=== PATIENT | male | born 1975 | race Caucasian/White ===

== ENCOUNTER → 2020-06-14 08:43 | Outpatient (BNVA) | payer MEDICAID, SELFPAY | PROVIDERS: Visit Provider Surgery | DX: E66.9 Obesity, unspecified (principal); Z68.31 Body mass index [BMI] 31.0-31.9, adult; E11.39 Type 2 diabetes mellitus with other diabetic ophthalmic complication; I10 Essential (primary) hypertension; K21.9 Gastro-esophageal reflux disease without esophagitis | CPT/HCPCS: 99214 ==

== ENCOUNTER → 2020-06-24 14:03 | Outpatient (BNVA) | payer MEDICAID, SELFPAY | PROVIDERS: PCP Internal Medicine Geriatric Medicine; Visit Provider Physician Assistant | DX: E66.9 Obesity, unspecified (principal); Z68.30 Body mass index [BMI] 30.0-30.9, adult | CPT/HCPCS: 99214 ==

== ENCOUNTER 2020-06-29 07:07 | Outpatient (REF) | payer MEDICAID, SELFPAY ==
[2020-06-29 08:33] LABS: MANUAL DIFF FLAG NO
[2020-06-29 08:57] LABS: Basophils Percent Auto 0.6 % (0-2); Eosinophils Absolute Auto 0.2 X10*3/uL (0.0-0.4); Eosinophils Percent Auto 3.2 % (0-4); Hematocrit 40.5 % (42-52); Hemoglobin 12.9 g/dl (14.0-18.0); Imm Gran Abs Auto 0.01 X10*3/uL (0.00-0.03); Imm Gran Pct Auto 0.2 % (0.0-0.4); Lymphocytes Percent Auto 20.2 % (20-40); Mean Corpuscular HGB Conc 31.9 g/dl (31.0-36.0); Mean Corpuscular Hemoglobin 28.4 pg (27.0-33.0); Mean Corpuscular Volume 89.2 fL (80-98); Mean Platelet Volume 11.2 fL (9.4-12.4); Monocytes Absolute Auto 0.4 X10*3/uL (0.1-1.2); Neutrophils Absolute Auto 3.4 X10*3/uL (2.0-8.3); Neutrophils Percent Auto 67.8 % (45-73); Platelet Count 246 X10*3/uL (160-400); Red Blood Count 4.54 X10*6/uL (4.60-5.80); Red Cell Distribution Width 14.8 % (11.0-16.0)
[2020-06-29 09:39] LABS: C Reactive Protein 0.84 mg/dL (< or = 0.50); Cholesterol 115 mg/dL; HDL Cholesterol 28 mg/dL; Iron 66 mcg/dL (45-160); LDL Cholesterol Calculated 69 mg/dl; Percent Iron Saturation 28 % (15-50); Total Iron Binding Capacity 233 mcg/dL (228-428); Triglycerides 93 mg/dL; Unsaturated Iron Binding 167 ug/dL
[2020-06-29 09:54] LABS: Estimated Average Glucose 123 mg/dL; Hemoglobin A1c % 5.9 %
[2020-06-29 10:02] LABS: Ferritin 293 ng/mL (20-250); TSH reflex Free T4 3.39 mIU/mL (0.32-4.0); Vitamin D 25-OH Total 39.8 ng/mL (>30)
[2020-06-29 10:04] LABS: Folate 8.2 ng/mL (> or = 4.0); Vitamin B12 673 pg/mL (200-900)
[2020-06-29 11:10] LABS: Alanine Aminotransferase 12 U/L (0-40); Albumin Level 4.3 g/dL (3.5-5.0); Alkaline Phosphatase 57 U/L (39-117); Anion Gap 16 (12-20); Aspartate Amino Transferase 16 U/L (5-37); Bilirubin Total 0.6 mg/dL (0.0-1.0); Blood Urea Nitrogen 24 mg/dL (9-16); Calcium 9.4 mg/dL (8.4-10.2); Carbon Dioxide 24 mmol/L (22-29); Chloride 105 mmol/L (96-108); Estimated Glomerular Filt Rate > 60; Glucose Random 91 mg/dL (60-115); Potassium 3.8 mmol/l (3.3-5.1); Sodium 141 mmol/L (135-145); Total Protein 7.3 g/dL (6.5-8.0)
[2020-06-30 22:22] LABS: Insulin Level Total 8.4 uIU/mL
[2020-07-02 03:17] LABS: Zinc 123 mcg/dL (60-130)
[2020-07-03 01:11] LABS: Vitamin A 40 mcg/dL (38-98)
[2020-07-05 15:12] LABS: Vitamin B1 29 nmol/L (8-30)
== END 2020-06-29 07:08 | disposition home or self-care (01) ==
LOC: HO.LAB 07:07
PROVIDERS: PCP Internal Medicine Geriatric Medicine; Visit Provider Physician Assistant
DX: Z01.818 Encounter for other preprocedural examination (principal); E66.9 Obesity, unspecified
CPT/HCPCS: 36415; 80053; 80061; 82306; 82607; 82728; 82746; 83036; 83519; 83525; 83540; 84425; 84443; 84590; 84630; 85025; 86140; 86850

== ENCOUNTER 2020-07-01 07:12 | Outpatient (REF) | payer MEDICAID, SELFPAY ==
[2020-07-01 08:24] LABS: INTERNATIONAL NORM RATIO 1.1 (0.9-1.1); Prothrombin Time 12.7 SEC (10.8-13.0)
[2020-07-01 08:27] LABS: Partial Thromboplastin Time 35.6 SEC (24.1-38.0)
[2020-07-04 20:21] LABS: Calcium (PTHI) 9.2 mg/dL (8.6-10.3); PTHI 29 pg/mL (14-64)
== END 2020-07-01 07:13 | disposition home or self-care (01) ==
LOC: HO.LAB 07:12
PROVIDERS: Physician Assistant; PCP Internal Medicine Geriatric Medicine; Visit Provider Physician Assistant
DX: Z01.818 Encounter for other preprocedural examination (principal); E66.9 Obesity, unspecified
CPT/HCPCS: 36415; 83970; 85610; 85730; 87086

== ENCOUNTER 2020-07-05 06:33 | Inpatient (IN) | payer MEDICAID, SELFPAY ==
[2020-06-24 11:09] VITALS: BMI 31.2
--- NOTE | 2020-07-04 10:28 | HO.ANESPROP2 ---
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 Sister No problems noted. Son No problems noted. Daughter No problems noted. Surgical History Surgical History History of esophagogastroduodenoscopy (EGD) Hx of circumcision Hx of inguinal hernia repair Social History Social History (Updated 06/22/20 @ 13:25 by Hardy Merida [facility]) Are you a primary health care law specialist to a significant other at home: No Do you presently have visiting nurse or other home services: No Alcohol intake: never Smoking Status: Former smoker Smoking Quit Date: 2017 Second Hand Smoke Exposure: No Use of substances other than those prescribed or required for medical reasons: No Substance Use Type: Crack/Cocaine Substance Use Type Other:: quit 2016 Have you been hit, kicked, punched, or otherwise hurt by someone within the past year? If so, by whom?: No Advance Directives: No Advance Directives Information Provided: Yes Advance Directives on File: No Recently lost weight without trying: No Meds Allergies Allergy/AdvReac Type Severity Reaction Status Date / Time Fentanyl AdvReac Mild nausea and Uncoded 07/05/20 06:31 vomiting Home Medications Medication Instructions Recorded Confirmed Type aspirin 81 mg tablet,delayed 81 mg PO DAILY 06/11/20 06/24/20 History release thiamine HCl (vitamin B1) 100 mg 100 mg PO DAILY 06/11/20 06/24/20 History tablet lisinopril 20 mg PO DAILY 06/24/20 06/24/20 History multivitamin 1 cap PO DAILY 06/24/20 06/24/20 History simvastatin 40 mg PO DAILY 06/24/20 06/24/20 History Exam Exam Date and Time: July 04, 2020 1028 Height,Weight and Vital Signs: Height 5 ft 11 in Weight 101.605 kg Pertinent Lab Results Pertinent Lab Results: Laboratory Tests 06/29/20 07:26 Blood Type A Positive Antibody Screen NEGATIVE Laboratory Tests 06/29/20 06/29/20 06/29/20 07:26 07:26 07:26 WBC 5.0 Hgb 12.9 L Hct 40.5 L Plt Count 246 PT INR APTT Sodium 141 Potassium 3.8 Chloride 105 Carbon Dioxide 24 BUN 24 H Creatinine 1.20 Hemoglobin A1c % 5.9 07/01/20 07:45 WBC Hgb Hct Plt Count PT 12.7 INR 1.1 APTT 35.6 Sodium Potassium Chloride Carbon Dioxide BUN Creatinine Hemoglobin A1c % Narrative Narrative: EKG 04/2020: SR@79, no significant ST-T changes, no ischemia or infarctio patterns and otherwise unremarkable MIBI 2015: no reversible or fixed defect Echo: LVEF 60-65%, otherwise unremarkable PFT 04/2020: Mild restrictive ventilatory defect with no bronchodilator response except small to medium airways. Decreased expiratory reserve volume suggests extrathoracic restriction likely secondary to abdominal obesity. 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 Sister No problems noted. Son No problems noted. Daughter No problems noted. Surgical History Surgical History History of esophagogastroduodenoscopy (EGD) Hx of circumcision Hx of inguinal hernia repair Social History Social History (Updated 06/22/20 @ 13:25 by Hardy Merida CMA) Are you a primary health care law specialist to a significant other at home: No Do you presently have visiting nurse or other home services: No Alcohol intake: never Smoking Status: Former smoker Smoking Quit Date: 2017 Second Hand Smoke Exposure: No Use of substances other than those prescribed or required for medical reasons: No Substance Use Type: Crack/Cocaine Substance Use Type Other:: quit 2016 Have you been hit, kicked, punched, or otherwise hurt by someone within the past year? If so, by whom?: No Advance Directives: No Advance Directives Information Provided: Yes Advance Directives on File: No Recently lost weight without trying: No Meds Allergies Allergy/AdvReac Type Severity Reaction Status Date / Time Fentanyl AdvReac Mild nausea and Uncoded 07/05/20 06:31 vomiting Home Medications Medication Instructions Recorded Confirmed Type aspirin 81 mg tablet,delayed 81 mg PO DAILY 06/11/20 06/24/20 History release thiamine HCl (vitamin B1) 100 mg 100 mg PO DAILY 06/11/20 06/24/20 History tablet lisinopril 20 mg PO DAILY 06/24/20 06/24/20 History multivitamin 1 cap PO DAILY 06/24/20 06/24/20 History simvastatin 40 mg PO DAILY 06/24/20 06/24/20 History Exam Airway Mallampati Class: II TM Dist: >3cm Neck ROM: Full Loose/Missing/Broken Teeth: No Heart: rrr+[id number] Lungs: cta b/l Assessment and Plan Assessment Anesthesia Assessment: Anesthesia Plan Discussed, PAT Visit and Chart Reviewed Final Anesthetic Review NPO: Yes Final Preanesthetic Review: No Changes in Pt Med Stat, Meds/Allgs Chart Reviewed, Consent Obtained/Reviewed and Anes Risks/Benef Reviewed Patient Risk: Low Procedure Risk: Low Assessment/Block/Sedation in SS: Assess/Block/Sedation-SS Anesthetic Plan Anesthetic Plan: GA Disposition: Standard PACU
[2020-07-05] VITALS (10 sets, daily range): BP systolic 124–156; BP diastolic 64–88; PULSE 67–88; RESP 12–19; TEMP 36.1–36.8; O2SAT 94–98
[2020-07-05 06:23] LABS: Glucose, Whole Blood 96 mg/dL (60-115)
[2020-07-05] MEDS: Lactated Ringers 1,000 ML 100 ML IVCONT ×2 (06:35→11:40)
[2020-07-05 06:56] LABS: SARS COV2 PCR INHOUSE NEGATIVE (Negative)
--- NOTE | 2020-07-05 07:24 | MHC.SHP ---
Pre-Procedural Eval Section A The patient is an INPATIENT: Yes The History & Physical has been completed within 30 days and I have reviewed it.: No Section B Chief Complaint: post op sleeve Relevant Family History (Specify if Yes): No Relevant Social History: None History of Previous Operations: No relevant previous surgery Allergies: Allergies Allergy/AdvReac Type Severity Reaction Status Date / Time Fentanyl AdvReac Mild nausea and Uncoded 07/05/20 06:31 vomiting Review of Systems Sugical H&P ROS: Negative: Constitution, Cardiovascular, Respiratory, Neurological, Psychiatric, Hem-Onc, Allergic/Immunologic, Gastrointestinal, Genitourinary, Musculoskeletal, Integumentary, Endocrine and Eyes/Ears/Nose/Throat Exam Surgical H&P Exam: Normal: HEENT, Normal: Heart, Normal: Lungs, Normal: Extremities, Normal: Abdomen, Normal: Skin and Normal: Neurological Plan Diagnosis/Plan: Unchanged Patient has been examined and remains a candidate for the planned procedure
[2020-07-05] MEDS: ceFAZolin Sodium/Dextrose,Iso 2 GM/50 ML PIGGYBACK IV ×2 (07:28→13:21)
--- NOTE | 2020-07-05 09:57 | P.BOP_ITS ---
Brief Operative Note Date of procedure: 07/05/20 Pre-op diagnosis: Refractory obesity with comorbidities Post-op diagnosis: same Procedure: NITIAL PATIENT BMI ON PRESENTATION AT OUR OFFICE: 37 kg/m2 LAST BMI BEFORE SURGERY: 30.8 kg/m2 COMORBIDITIES: non-insulin dependent diabetes, hypertension, hyperlipidemia, GERD, asthma, liver steatosis The patient participated in an intensive weekly lifestyle intervention and exercise program during which the patient has lost between the initial office visit and the last preoperative visit 46 lbs, or 17.36% of initial actual body weight. The patient met the BMI-criteria for bariatric surgery based on the BMI on initial presentation. The patient should not be penalized for achieving such weight loss because it is not sustainable long-term without surgical intervention and it was achieved in preparation for bariatric surgery under my direction and based on my published research ([email or web address] and [email or web address]/[email or web address]) that a 10% preoperative weight loss improves long-term weight loss after surgery and reduces perioperative complications. Insurance carriers such as [facility] have endorsed my recommendations and have included in their policies criteria to include a 10% preoperative weight loss requirement. PROCEDURE: Esophago-gastroscopy, laparoscopic lysis of adhesions, laparoscopic sleeve gastrectomy and laparoscopic gastropexy INDICATIONS: This is a 45 year-old male who was electively scheduled for laparoscopic, possibly open sleeve gastrectomy. The risks and complications of the procedure were discussed with the patient in advance, particularly the possibility of ; pulmonary embolism; staple line leak; bleeding; GERD; cardiac, pulmonary, or renal complications; as well as long-term problems such as insufficient weight loss, vitamin deficiency, strictures, or ulcers. The patient understood all the risks, and was in agreement to proceed with surgery. DESCRIPTION OF PROCEDURE: After informed consent was obtained from the patient, the patient was given preoperative antibiotics, and was transferred to the operating room. After successful induction of general anesthesia, pneumatic compressive devices were placed on both lower extremities. An upper endoscopy was performed next. The oropharynx and esophagus appeared to be within normal limits. There was no diaphragmatic hernia present consistent with the findings of the preoperative upper GI. The stomach was entered. Then after all fluid and air were suctioned and the stomach was fully decompressed, the scope was withdrawn and secured in the mid esophagus. The patient was then prepped and draped in the usual sterile manner, and abdominal access was established at the right upper quadrant with the Edinson technique. A 12 mm blunt port was inserted, and the abdomen was insufflated with CO2 to a pressure of 15 mmHg. Under direct visualization, additional ports were placed, specifically two 5 mm Versi-step ports to the left upper quadrant, and a 5 mm Versi-Step port to the right upper quadrant. 1% lidocained plan was used to infiltrate all port sites as well as all fascia defects. Following that, the patient was placed in a steep reverse Trendelenburg position. An additional 5 mm port was placed to the right flank for the Mediflex retractor that was used to retract the left lobe of the liver. The gastro-esophageal fat pad was opened with the ultrasonic device (Thunderbeat, Olympus) and the anterior esophagus and hiatus were exposed. The angle of His was opened with the ultrasonic device the fundus of the stomach from any diaphragmatic and splenic attachments. I then opened the gastrocolic ligament between the transverse colon and the greater curvature of the stomach with the ultrasonic device to enter the lesser sac and facilitate the ligation of the short gastric vessels. I started at a mid-point along the greater curvature and using the Thunderbeat, all short gastric vessels were divided all the way to the angle of His until the left sean was completely dissected at its entirety. I then divided the gastro-colic ligament distally to a distance of about 3-4 cm proximal to the esophagus. There were extensive congenital retrogastric adhesions that were lysed with the Thunderbeat. Adhesiolysis took 30 minutes to complete The stomach was then divided transversely with one Endo DIXIE-45 purple and two DIXIE-45 orange loads, and two DIXIE-60 articulating purple and three DIXIE-60 orange loads using the AEON stapler and loads. Every effort was made that the gastric sleeve had a tubular shape and an even caliber throughout. Once the sleeve resection was completed, the staple line of the gastric sleeve was reinforced with Hemoclips. The resected stomach was retrieved without difficulty from the Edinson port. A gastropexy was then performed in order to prevent postoperative GERD and partial gastric volvulus. Several interrupted 2.0 Surgidac sutures were placed between the sleeve's staple line and the previously divided greater omentum and gastro-colic ligament using the Endo-Stitch device. An upper endoscopy was performed. There was no narrowing at the GE junction. The scope was easily advanced all the way to the pylorus which was clearly visualized. There was no narrowing anywhere and the sleeve's caliber was even throughout. The sleeve's staple line was inspected and there was no evidence of ischemia, bleeding or dehiscence. At that point the gastroscope was withdrawn from the patient?s mouth while we were decompressing the bowel and the stomach from any remaining air. I looked into the lesser sac to see how the sleeve was situating and it was situating well. There was no bleeding from the staple line, spleen, or short gastric vessels. The Mediflex retractor was removed, and the undersurface of the liver was inspected and there was no bleeding. The patient was placed in supine position. I closed the fascial defect of the 12 mm port site with a figure of eight #1 Polysorb suture. Then 100 cc 0.25 % Marcaine plain with 10 mg of Dexamethasone were used to infiltrate the fascial closure as well as all skin incisions. At this point, the abdomen was deflated, all ports were removed under direct vision, and no bleeding was noted from any of the port sites. The skin incisions were irrigated with saline and were closed with 4-0 absorbable monofilament sutures. Steri-Strips and OpSites were used to cover all incisions. The patient was extubated and was transferred in stable condition to the recovery room for further care. I was present and performed all lockwood parts of the procedure. Janeth Brewster was the first aid instructor. There were no residents to assist with this case. Onel Remy MD, PhD, FACS Surgeon: Bola Remy MD Anesthesia: GETA, local and other (TAP block) Pressure Controller: Omayra Brewster Estimated blood loss (mL): 10 IV fluids (mL): 3,000 Urine output (mL): 0 (No Stephen to record) Pathology: other (Stomach) Condition: stable Disposition: PACU
[2020-07-05] MEDS: Famotidine/PF 20 MG/2 ML VIAL IVPUSH ×2 (10:23→21:18)
[2020-07-05 10:55] LABS: Hematocrit 37.9 % (42-52)
[2020-07-05 11:16] LABS: Anion Gap 18 (12-20); Blood Urea Nitrogen 12 mg/dL (9-16); Calcium 8.4 mg/dL (8.4-10.2); Carbon Dioxide 20 mmol/L (22-29); Chloride 107 mmol/L (96-108); Estimated Glomerular Filt Rate > 60; Glucose Random 159 mg/dL (60-115); Potassium 4.1 mmol/l (3.3-5.1); Sodium 141 mmol/L (135-145)
[2020-07-05 12:00] LABS: Glucose, Whole Blood 158 mg/dL (60-115)
--- NOTE | 2020-07-05 12:42 | PM.PNGS ---
Subjective Subjective Interval history: Patient has mild incisional pain. Was able to ambulate and use the incentive spirometer. Patient had nausea and 3 episodes of emesis overnight. Feels better now. Physical Exam Vital Signs: Vital Signs: Vital Signs Temp Pulse Resp BP Pulse Ox 07/05/20 11:00 97.4 F 67 148/77 H 97 07/05/20 10:41 72 16 124/64 96 07/05/20 10:26 97.8 F 70 16 131/74 96 07/05/20 10:11 80 16 131/74 95 07/05/20 10:06 81 16 125/73 96 07/05/20 10:01 88 16 125/68 95 07/05/20 09:56 97 F 88 12 130/75 94 07/05/20 06:27 97 F 81 16 135/81 97 Body Mass Index 31.2 GI: Inspection: Yes normal to inspection and Yes incision (clean, dry, intact) Extrem: Right lower extremity: normal to inspection (no calf tenderness) Left lower extremity: normal to inspection (no calf tenderness) Progress Note: A&P Assessment and plan (1) Obesity: Problem details: Pre op orders for LSG on 06/28/20 are singed and consents reviewed and signed. Jun 26 - liquid diet only of 3 protien shakes. Start Golying and sdrink 1/2 gallon to be completed by 8 p. Jun 27 - clear protein (Isopure) drinks only - same amt as day before. Complete the remainder of the 1/2 gallon of Golytely by 8pm. NPO after MN. Status: Acute Assessment and Plan: S/p 45 year old Male was admitted 07/05/20 with morbid obesity and comorbidities. Problem 1: s/p laparoscopic sleeve gastrectomy, gastropexy and lysis of adhesions Status: Doing well Plan: Check am labs, If OK, will continue phase 1 bariatric diet and discharge later today. 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: Problem details: NIDDM Status: Acute (6) Steatosis, liver: Status: Inactive (7) Congenital intra-abdominal adhesions: Status: Acute (8) Asthma: Status: Acute (9) S/P laparoscopic sleeve gastrectomy: Status: Acute Fall Risk Details Current Medications: Current Medications Generic Name Dose Route Start Last Admin Trade Name Freq PRN Reason Stop Dose Admin Famotidine 20 mg 07/05/20 10:15 07/05/20 10:23 Famotidine/Pf 20 Mg/2 Ml Vial IVPUSH 20 mg BID NASREEN Administration Hydromorphone HCl 0.5 mg 07/05/20 10:00 Hydromorphone Hcl 0.5 Mg/0.5 Ml Syringe IVPUSH Q5M PRN Pain, Severe (Pain Scale 7-10) Hydromorphone HCl 0.25 mg 07/05/20 09:56 Hydromorphone Hcl 0.5 Mg/0.5 Ml Syringe IVPUSH Q4H PRN Pain, Moderate (Pain Scale 4-6 Lactated Ringer's 1,000 mls @ 100 mls/hr 07/05/20 06:30 07/05/20 11:40 Lr IVCONT 100 mls/hr .Q10H NASREEN Administration Lactated Ringer's 1,000 mls @ 150 mls/hr 07/05/20 10:00 07/05/20 11:41 Lr IVCONT Not Given .Q6H40M NASREEN Cefazolin Sodium/Dextrose 2 gm in 50 mls @ 100 mls/hr 07/05/20 13:40 Ancef IV 07/05/20 14:09 ONCE@1340 ONE Acetaminophen 1,000 mg in 100 mls @ 400 mls/hr 07/05/20 10:00 07/05/20 11:45 Ofirmev IV Not Given Q6H NASREEN Lisinopril 20 mg 07/05/20 11:00 07/05/20 11:45 Lisinopril 20 Mg Tablet PO Not Given DAILY [facility] Protocol Metoclopramide HCl 10 mg 07/05/20 09:56 Metoclopramide Hcl 10 Mg/2 Ml Vial IVPUSH Q6H PRN Nausea Ondansetron HCl 4 mg 07/05/20 10:00 Ondansetron Hcl 4 Mg/2 Ml Vial IVPUSH ONCE PRN Nausea and Vomiting Ondansetron HCl 4 mg 07/05/20 09:56 Ondansetron Hcl 4 Mg/2 Ml Vial IVPUSH Q4H PRN Nausea and Vomiting Oxycodone HCl 10 mg 07/05/20 10:00 Oxycodone Hcl Immed Release 5 Mg Tablet PO ONCE PRN Pain, Severe (Pain Scale 7-10) Sodium Chloride 3 ml 07/05/20 16:00 0.9 % Sodium Chloride Flush 3 Ml Syringe IVFLUSH QSHIFT NASREEN Time Spent With Patient Time: Total time spent is greater than 50% in coordination of care (as documented) at patient's floor/unit and/or counseling patient: Time with patient: less than 15 minutes
[2020-07-05] MEDS: ondansetron HCL 4 MG/2 ML VIAL IVPUSH (15:39)
[2020-07-05 16:54] LABS: Glucose, Whole Blood 155 mg/dL (60-115)
[2020-07-05] MEDS: Lactated Ringers 1,000 ML 150 ML IVCONT ×2 (17:30→23:02)
[2020-07-05] MEDS: Metoclopramide HCl 10 MG/2 ML VIAL IVPUSH (19:20)
[2020-07-06] VITALS: BP 142/71; PULSE 74; RESP 16; TEMP 37.3; O2SAT 97
[2020-07-06 04:00] VITALS: BP 150/75; PULSE 64; RESP 16; TEMP 36.6; O2SAT 97
[2020-07-06] MEDS: Metoclopramide HCl 10 MG/2 ML VIAL IVPUSH ×2 (04:00→10:32)
--- NOTE | 2020-07-06 04:13 | PC.NURSE ---
pt vomited about 25 ml of brown liquid, iv reglan given, PARIS Dimas aware.
[2020-07-06] MEDS: Lactated Ringers 1,000 ML 150 ML IVCONT (05:44)
[2020-07-06 07:46] VITALS: BP 150/72; PULSE 64; RESP 18; TEMP 36.9; O2SAT 98
[2020-07-06] MEDS: Famotidine/PF 20 MG/2 ML VIAL IVPUSH (08:36)
[2020-07-06] MEDS: lisinopriL 20 MG TABLET PO (08:37)
[2020-07-06 08:49] LABS: MANUAL DIFF FLAG NO
[2020-07-06 08:57] LABS: Basophils Percent Auto 0.4 % (0-2); Eosinophils Percent Auto 0.1 % (0-4); Hematocrit 37.6 % (42-52); Hemoglobin 12.4 g/dl (14.0-18.0); Imm Gran Abs Auto 0.05 X10*3/uL (0.00-0.03); Imm Gran Pct Auto 0.5 % (0.0-0.4); Lymphocytes Absolute Auto 0.9 X10*3/uL (1.2-4.9); Lymphocytes Percent Auto 8.3 % (20-40); Mean Corpuscular Hemoglobin 29.6 pg (27.0-33.0); Mean Corpuscular Volume 89.7 fL (80-98); Mean Platelet Volume 10.4 fL (9.4-12.4); Monocytes Absolute Auto 0.9 X10*3/uL (0.1-1.2); Monocytes Percent Auto 8.4 % (2-11); Neutrophils Absolute Auto 8.9 X10*3/uL (2.0-8.3); Neutrophils Percent Auto 82.3 % (45-73); Platelet Count 258 X10*3/uL (160-400); Red Blood Count 4.19 X10*6/uL (4.60-5.80); Red Cell Distribution Width 15.7 % (11.0-16.0); White Blood Count 10.8 X10*3/uL (4.8-10.8)
[2020-07-06 09:15] LABS: Alanine Aminotransferase 31 U/L (0-40); Albumin Level 3.8 g/dL (3.5-5.0); Alkaline Phosphatase 48 U/L (39-117); Anion Gap 17 (12-20); Aspartate Amino Transferase 27 U/L (5-37); Bilirubin Total 0.5 mg/dL (0.0-1.0); Blood Urea Nitrogen 11 mg/dL (9-16); Calcium 8.5 mg/dL (8.4-10.2); Carbon Dioxide 21 mmol/L (22-29); Chloride 104 mmol/L (96-108); Estimated Glomerular Filt Rate > 60; Glucose Random 133 mg/dL (60-115); Sodium 138 mmol/L (135-145); Total Protein 6.5 g/dL (6.5-8.0)
--- NOTE | 2020-07-06 11:15 | MHC.CM.PN ---
demarco senior care assistant note [employer] medical record reviewed along with case discussed with staff nurse , tyrone with patient he reported to me her lives alone he is active and independent in all adls and mobility , currently unemployed, patient reports he has been on psych medications but then ran out when his psychiatrist retiring,he has a thearpist but can not obtain a psychiatrist , on waiting list , he requested to speak with some one . iniated referral to the cares team to see if they could assist or give his recomendations or resources. he is post operative day 1 bariagric surgery and anticip[ate to be discharged home today with no other services discharge plan home with no vna services or dme services iniated referral to the cares team to see patient and if already dischargd to call at home pcp patient to call for post discharge follow up and bariatric surgical follow up as indicated on the discharge instructions
--- NOTE | 2020-07-06 12:24 | MHC.CARE ---
CARE team responded to consult request to speak with this patient who is unable to find an outpatient psychiatrist. He explained that he was for many years he was self medicating his psychiatric symptoms with drugs, was eventually prescribed Adderall which helped him maintain functioning with out using cocaine. Patient's previous PCP was the prescriber and now, with a new doctor at [facility] who will not. Has been waiting for 7 months for a prescriber through [facility] where he has a therapist. Discussed options for finding a private practice MD or DOCK WORKER, wrote down possible contacts and gave information about [facility] program. Updated RN
--- NOTE | 2020-07-06 13:57 | HO.POSTANES ---
Post Anesthesia Evaluation Post Anesthesia Evaluation Vital Signs: Vital Signs Temp Pulse Resp BP Pulse Ox 07/06/20 07:46 98.4 F 64 18 150/72 H 98 07/06/20 04:00 98 F 64 16 150/75 H 97 Anesthesia: General Endotracheal-GETA Mental Status: Awake Pain Control: Satisfactory Nausea/Vomiting: None Hydration: Adequate Anesthesia-Related Issues: No Anes. Related Issues
--- NOTE | 2020-08-31 13:06 | P.DS_ITS ---
DS: Providers Provider Date of admission: 07/05/20 06:33 Primary care physician: Ryan Lamar MD Consults: 07/06/20 11:12 Consult to Care Team Routine Comment: Reason for consultation: regarding finding a psychiatrist has thearpsit but on waiting list for md DS: Diagnosis Discharge Diagnosis (1) Obesity: Status: Acute Problem details: Pre op orders for LSG on 06/28/20 are singed and consents reviewed and signed. Jun 26 - liquid diet only of 3 protien shakes. Start Golying and sdrink 1/2 gallon to be completed by 8 p. Jun 27 - clear protein (Isopure) drinks only - same amt as day before. Complete the remainder of the 1/2 gallon of Golytely by 8pm. NPO after MN. 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: Status: Acute Problem details: NIDDM (6) Steatosis, liver: Status: Inactive (7) Congenital intra-abdominal adhesions: Status: Acute (8) Asthma: Status: Acute (9) S/P laparoscopic sleeve gastrectomy: Status: Acute DS: Medications Discharge Medications Home Medications: Home Medications Medication Instructions Recorded Confirmed lisinopril 20 mg PO DAILY 06/24/20 08/29/20 simvastatin 40 mg PO DAILY 06/24/20 06/24/20 Previous Rx's Medication Instructions Recorded acetaminophen 500 mg capsule 500 mg PO Q6H PRN #90 cap 06/24/20 ondansetron HCl 4 mg tablet 4 mg PO Q8H PRN #20 tab 06/24/20 pantoprazole 40 mg tablet,delayed 40 mg PO DAILY #30 tab 06/24/20 release sucralfate 100 mg/mL oral 10 ml PO BID #420 ml 06/24/20 suspension DS: Summary Time Spent with Patient Time attestation: Total time spent providing and/or coordinating discharge services: Physical Exam Vital Signs: Vital Signs: Last Vital Signs Temp 98.4 F 07/06/20 07:46 Pulse 64 07/06/20 07:46 Resp 18 07/06/20 07:46 BP 150/72 H 07/06/20 07:46 Pulse Ox 98 10/28/20 07:46 Body Mass Index 31.2 DS: Data Data Completed and Pending Completed studies during hospitalization [Text1]: Pending at discharge 07/05/20 08:35 Surgical [PTH] Routine Procedures Excision of Stomach, Percutaneous Endoscopic Approach, Vertical (07/05/20) Release Peritoneum, Percutaneous Endoscopic Approach (07/05/20) Labs on day of discharge: 06/29/20 07:26 Type and Screen Routine 07/05/20 05:49 SARS COV2 PCR INHOUSE Stat 07/05/20 06:11 Acetaminophen [Ofirmev] 1,000 mg in 100 ml IV As directed ceFAZolin Sodium/Dextrose,Iso [Ancef] 2 gm in 50 ml .ROUTE As directed 07/05/20 06:17 Glucose, Whole Blood Routine Acetaminophen [Ofirmev] 1,000 mg in 100 ml IVPB PREOP 07/05/20 06:17 Glucose, blood poc AM PRE-OP 07/05/20 06:30 Acetaminophen [Ofirmev] 1,000 mg in 100 ml IV PREOP Lactated Ringers [Lr] 1,000 ml IVCONT 100 mls/hr 07/05/20 07:02 dexAMETHasone Sod Phosphate/PF [Decadron] 10 mg .ROUTE .STK-MED ONE 07/05/20 07:03 Bupivacaine MPF 0.25 % [Sensorcaine-MPF 0.25% 10 ML] 10 ml .ROUTE .STK-MED ONE Lidocaine HCl 1 % MPF [Xylocaine 1 % MPF] 5 ml .ROUTE .STK-MED ONE 07/05/20 07:19 Ketamine HCl/NS 50 mg IVPUSH .STK-MED ONE Lidocaine HCl 2 % MPF [Xylocaine 2 % MPF] 5 ml .ROUTE .STK-MED ONE Midazolam HCl/PF [Versed] 2 mg IVPUSH .STK-MED ONE fentaNYL citrate/PF [Sublimaze] 50 mcg .ROUTE .STK-MED ONE propofoL [Diprivan] 200 mg IVPUSH .STK-MED ONE 07/05/20 07:20 Rocuronium [place] [Zemuron] 100 mg IV .STK-MED ONE Succinylcholine Chloride [Quelicin] 100 mg IVPUSH .STK-MED ONE 07/05/20 07:25 ceFAZolin Sodium/Dextrose,Iso [Ancef] 2 gm in 50 ml IV ONCE 07/05/20 07:35 Type and Screen Stat 07/05/20 07:47 Glycopyrrolate [Robinul] 0.2 mg .ROUTE .STK-MED ONE dexAMETHasone sod phosphate [Decadron] 4 mg .ROUTE .STK-MED ONE ondansetron HCL [Zofran] 4 mg .ROUTE .STK-MED ONE 07/05/20 08:12 Phenylephrine HCL 1,000 mcg IVPUSH .STK-MED ONE 07/05/20 08:17 HYDROmorphone HCl [Dilaudid] 2 mg .ROUTE .STK-MED ONE 07/05/20 08:35 Surgical [PTH] Routine 07/05/20 09:15 Sugammadex Sodium [Bridion] 200 mg IVPUSH .STK-MED ONE propofoL [Diprivan] 200 mg IVPUSH .STK-MED ONE 07/05/20 09:56 Ambulate Q4H WHILE AWAKE Compression Therapy QSHIFT Head of bed elevation DIRECTED Incentive Spirometry Q1HR WHILE AWAKE Intake and Output Q4HR Up ad gabriel .Continous Code Status Routine HYDROmorphone HCl [Dilaudid] 0.25 mg IVPUSH Q4H PRN Metoclopramide HCl [Reglan] 10 mg IVPUSH Q6H PRN ondansetron HCL [Zofran] 4 mg IVPUSH Q4H PRN 07/05/20 09:57 Vital Signs Q4H 07/05/20 09:58 Apply Abdominal Binder TOLERATED 07/05/20 10:00 Continuous pulse oximetry CONT Oxygen administration Nasal Cannula 3 lpm Vital Signs Q1H Vital Signs Q5MIN NPO Diet Acetaminophen [Ofirmev] 1,000 mg in 100 ml IV Q6H HYDROmorphone HCl [Dilaudid] 0.5 mg IVPUSH Q5M PRN Lactated Ringers [Lr] 1,000 ml IVCONT 150 mls/hr ondansetron HCL [Zofran] 4 mg IVPUSH ONCE PRN oxyCODONE HCl Immed Release [Roxicodone] 10 mg PO ONCE PRN 07/05/20 10:15 Famotidine/PF [Pepcid/PF] 20 mg IVPUSH BID 10/27/20 10:21 Famotidine/PF [Pepcid/PF] 20 mg IVPUSH .STK-MED ONE 07/05/20 10:36 Basic Metabolic Panel Stat Hemoglobin and Hematocrit Stat 07/05/20 11:00 lisinopriL [Zestril] 20 mg PO DAILY 07/05/20 11:55 Glucose, Whole Blood Routine 07/05/20 13:40 ceFAZolin Sodium/Dextrose,Iso [Ancef] 2 gm in 50 ml IV ONCE@1340 07/05/20 16:00 0.9 % Sodium Chloride Flush [NS Flush] 3 ml IVFLUSH QSHIFT 07/05/20 16:48 Glucose, Whole Blood Routine 07/06/20 08:22 Complete Blood Count Auto Diff Stat Comprehensive Met. Panel DAILY@0600 Laboratory Last Values WBC 10.8 X10*3/uL (4.8-10.8) 07/06/20 08:22 RBC 4.19 X10*6/uL (4.60-5.80) L 07/06/20 08:22 Hgb 12.4 g/dl (14.0-18.0) L 07/06/20 08:22 Hct 37.6 % (42-52) L 07/06/20 08:22 MCV 89.7 fL (80-98) 07/06/20 08:22 MCH 29.6 pg (27.0-33.0) 07/06/20 08:22 MCHC 33.0 g/dl (31.0-36.0) 07/06/20 08:22 RDW 15.7 % (11.0-16.0) 07/06/20 08:22 Plt Count 258 X10*3/uL (160-400) 07/06/20 08:22 MPV 10.4 fL (9.4-12.4) 07/06/20 08:22 Immature Gran % (Auto) 0.5 % (0.0-0.4) H 07/06/20 08:22 Neut % (Auto) 82.3 % (45-73) H 07/06/20 08:22 Lymph % (Auto) 8.3 % (20-40) L 07/06/20 08:22 [place] % (Auto) 8.4 % (2-11) 10/28/20 08:22 Eos % (Auto) 0.1 % (0-4) 07/06/20 08:22 Baso % (Auto) 0.4 % (0-2) 07/06/20 08:22 Lymph # (Auto) 0.9 X10*3/uL (1.2-4.9) L 07/06/20 08:22 [place] # (Auto) 0.9 X10*3/uL (0.1-1.2) 07/06/20 08:22 Eos # (Auto) 0.0 X10*3/uL (0.0-0.4) 07/06/20 08:22 Baso # (Auto) 0.0 X10*3/uL (0.0-0.2) 07/06/20 08:22 Abs Immat Gran (auto) 0.05 X10*3/uL (0.00-0.03) H 07/06/20 08:22 Absolute Neuts (auto) 8.9 X10*3/uL (2.0-8.3) H 07/06/20 08:22 Absolute Nucleated RBC 0.000 X10*3/uL (0.0-0.012) 07/06/20 08:22 Nucleated RBC % (auto) 0.0 /100WBC (0.0-0.2) 07/06/20 08:22 Sodium 138 mmol/L (135-145) 07/06/20 08:22 Potassium 4.0 mmol/l (3.3-5.1) 07/06/20 08:22 Chloride 104 mmol/L (96-108) 07/06/20 08:22 Carbon Dioxide 21 mmol/L (22-29) L 07/06/20 08:22 Anion Gap 17 (12-20) 07/06/20 08:22 BUN 11 mg/dL (9-16) 07/06/20 08:22 Creatinine 1.09 mg/dL (0.5-1.4) 07/06/20 08:22 Estim Creat Clear Calc 106.0 07/06/20 08:22 Estimated GFR > 60 07/06/20 08:22 POC Glucose 155 mg/dL (60-115) H 07/05/20 16:48 Random Glucose 133 mg/dL (60-115) H 07/06/20 08:22 Calcium 8.5 mg/dL (8.4-10.2) 07/06/20 08:22 Total Bilirubin 0.5 mg/dL (0.0-1.0) 07/06/20 08:22 AST 27 U/L (5-37) D 07/06/20 08:22 ALT 31 U/L (0-40) 07/06/20 08:22 Alkaline Phosphatase 48 U/L (39-117) 07/06/20 08:22 Total Protein 6.5 g/dL (6.5-8.0) 07/06/20 08:22 Albumin 3.8 g/dL (3.5-5.0) 07/06/20 08:22 Coronavirus (PCR) NEGATIVE (Negative) 07/05/20 05:49 Blood Type A Positive 07/05/20 07:35 Antibody Screen NEGATIVE 07/05/20 07:35 Discharge Plan Discharge Anticipated Discharge Date/Time: 07/06/20 10:04 Patient Disposition: Home, Self-Care Referrals: Name,MD Ryan [Primary Care Provider] - Discharge Medications: Continued lisinopril 20 mg Tablet 20 mg PO DAILY RF: 0 simvastatin 40 mg Tablet 40 mg PO DAILY RF: 0 ondansetron HCl [Zofran] 4 mg tablet 4 mg PO Q8H PRN (Reason: nausea and vomiting) Qty: 20 RF: 0 pantoprazole 40 mg tablet,delayed release (DR/EC) 40 mg PO DAILY Qty: 30 RF: 11 acetaminophen 500 mg capsule 500 mg PO Q6H PRN (Reason: fever) Qty: 90 RF: 1 sucralfate [Carafate] 100 mg/mL suspension 10 ml PO BID Qty: 420 RF: 3 Discontinued peg 3350-electrolytes [Gavilyte-C] 240-22.72-6.72 -5.84 gram recon soln 240 ml PO Q10M Qty: 4000 RF: 0 multivitamin Capsule 1 cap PO DAILY RF: 0 aspirin [Adult Low Dose Aspirin] 81 mg tablet,delayed release (DR/EC) 81 mg PO DAILY RF: 0 thiamine HCl (vitamin B1) 100 mg tablet 100 mg PO DAILY RF: 0 peg 3350-electrolytes [Golytely] 236-22.74-6.74 -5.86 gram recon soln 240 ml PO Q10M Qty: 4000 RF: 0 Discharge Orders: Discharge Order (Routine); Ordered 07/06/20 Ordered By: Bola Remy Diet: other Activity on Discharge: No Contact sports Stand Alone Forms: Community Support Discharge Date/Time: 07/06/20 12:46 Activity Restrictions/Additional Instructions: ADMITTING DIAGNOSIS: morbid obesity, GERD, hypertension, NIDDM DISCHARGE DIAGNOSIS: same, s/p laparoscopic sleeve gastrectomy PAST SURGICAL HISTORY: Right inguinal hernia PROCEDURE: upper endoscopy, laparoscopic sleeve gastrectomy with gastropexy DISCHARGE SUMMARY: History of Present Illness: The patient is a 45 year-old an with a BMI of 36.7 kg/m2 and associated co- morbidities as described above. The patient had extensive work-up,lost 45 lbs preoperatively and was electively scheduled for laparoscopic, possible open sleeve gastrectomy and gastropexy. Risks and complications of the surgery were discussed with the patient in advance, particularly the possibility of , pulmonary embolism, anastomotic leak, bleeding, bowel injury, GERD, cardiac, renal or pulmonary complications. The patient understood all the risks and wasin agreement with the surgical plan. Hospital Course: The patient underwent an uneventful laparoscopic sleeve gastrectomy with gastropexy the day of admission. Postoperatively, the patient was transferred to the surgical floor and hemoglobin the first 8 hours after surgery was 12.0 mg/dl. The patient was on IV Acetaminophen and IV dilaudid for pain control. Patient was started on bariatric phase 1 diet POD #0. On postoperative day one, the patient was feeling well without nausea, vomiting, fevers, or tachycardia. The patient had some mild incisional pain. The abdomen was soft. Follow-up hemoglobin was 12.4 mg/dl. The white count was 10.8 with 82.3% neutrophils, the creatinine 1.09 mg/dl was and the potassium 4.0mmol/lt. On the morning of postoperative day one, the patient was continued on 1 ounce of water or ice every half hour. During the first day, the patient did fairly well, having some incisional pain, but able to ambulate adequately and to tolerate liquids well. Since the patient is doing well, we decided that the patient was ready to be discharged. The patient was given instructions to follow-up with me next week and to call my office for any fever over 101, persistent abdominal pain, nausea, vomiting, GERD, change in the color of the MAURICE fluid, symptoms of DVT such as calf tenderness, or leg swelling, or pulmonary embolism such as chest pain or shortness of breath. The patient was also instructed to drink 40-60 ounces of liquids per day using the 1-ounce cups. The patient was given prescription for Tylenol for pain, Zofran prn for nausea, and pantoprazole and carafate. The p atient was encouraged to ambulate and use the incentive spirometer. The patient was allowed to shower, but no baths, and encouraged to stay active at home. All of these instructions were given to the patientpersonally. All questions were answered and the patient understood all instructions, the instructions were also given to the patient in print. Visit Report Forms: Patient Portal Discharge page Care Plan Goals: weight loss Health Concerns: morbid obesity Plan of Treatment: see discharge instructions
== END 2020-07-06 12:46 | disposition home or self-care (01) | DRG 403 ==
LOC: HO.SSS 06:35 → HO.SSSA 06:38 → HO.S3 10:08
PROVIDERS: Physician Assistant; Admitting Provider Surgery; PCP Internal Medicine Geriatric Medicine; Visit Provider Surgery
PROC: 0DB64Z3 Excision of Stomach, Percutaneous Endoscopic Approach, Vertical (ICD-10-PCS; CPT 43845; principal; 2020-07-05 07:30)
DX: E66.9 Obesity, unspecified (principal); E11.9 Type 2 diabetes mellitus without complications; Z68.30 Body mass index [BMI] 30.0-30.9, adult; E78.5 Hyperlipidemia, unspecified; I10 Essential (primary) hypertension; K21.9 Gastro-esophageal reflux disease without esophagitis; K66.0 Peritoneal adhesions (postprocedural) (postinfection); J45.909 Unspecified asthma, uncomplicated; Z20.828 Contact with and (suspected) exposure to other viral communicable diseases
CPT/HCPCS: 36415; 80048; 80053; 82947; 85014; 85018; 85025; 86850; 86900; 86901; 87635; 88307; 88342; 99024; A4649; J0131; J0330; J0690; J1100; J1170; J2250; J2370; J2405; J2765; J3010

== ENCOUNTER → 2020-07-13 07:31 | Outpatient (BNVA) | payer MEDICAID, SELFPAY | PROVIDERS: PCP Internal Medicine Geriatric Medicine; Referring Provider Internal Medicine Geriatric Medicine; Visit Provider Surgery | DX: E66.3 Overweight (principal); Z68.28 Body mass index [BMI] 28.0-28.9, adult; Z98.84 Bariatric surgery status | CPT/HCPCS: 99212 ==

== ENCOUNTER 2020-07-21 13:09 | Outpatient (REF) | payer MEDICAID, SELFPAY ==
--- NOTE | 2020-07-21 | XR_ITS ---
EXAMINATION: XR LUMBOSACRAL SPINE WITH OBLIQUES CLINICAL INFORMATION: Lower back pain COMPARISON: 11/19/2013 TECHNIQUE: AP, both oblique, and lateral views of the lumbar spine. Lateral view of the lumbosacral junction. FINDINGS: There is no fracture or subluxation. Vertebral body height and alignment is maintained. There is disc space narrowing at multiple levels, greatest at L2-L3 with vacuum disc phenomenon. This has significantly progressed since 2013. Small multilevel endplate osteophytes. Facet arthropathy throughout. The sacrum is intact. The sacroiliac joints are symmetric. The bowel gas pattern is unremarkable. XR/XR lumbar spine 4V min IMPRESSION: Moderate degenerative changes of the lumbar spine which have significantly progressed since 2013.
== END 2020-07-21 13:10 | disposition home or self-care (01) ==
LOC: HO.XRAY 13:09
PROVIDERS: PCP Internal Medicine Geriatric Medicine; Visit Provider Internal Medicine Geriatric Medicine
DX: M54.5 Low back pain (principal)
CPT/HCPCS: 72110

== ENCOUNTER → 2020-08-17 07:43 | Outpatient (BNVA) | payer MEDICAID, SELFPAY | PROVIDERS: PCP Internal Medicine Geriatric Medicine; Referring Provider Internal Medicine Geriatric Medicine; Visit Provider Surgery | DX: E66.3 Overweight (principal); Z98.84 Bariatric surgery status | CPT/HCPCS: 99212 ==

== ENCOUNTER → 2020-08-29 14:20 | Outpatient (BNVA) | payer MEDICAID, SELFPAY | PROVIDERS: PCP Internal Medicine Geriatric Medicine; Referring Provider Internal Medicine Geriatric Medicine; Visit Provider Nurse Practitioner Family | DX: M47.27 Other spondylosis with radiculopathy, lumbosacral region (principal) | CPT/HCPCS: 99202 ==

== ENCOUNTER 2020-09-12 07:02 | Outpatient (REF) | payer MEDICAID, SELFPAY ==
--- NOTE | 2020-09-12 07:04 | MR_ITS ---
EXAMINATION: MR LUMBAR SPINE WITHOUT CONTRAST CLINICAL INFORMATION: Other spondylosis with radiculopathy, lumbosacral region. COMPARISON: None. TECHNIQUE: MRI of the lumbar spine was obtained using routine sequences without contrast. FINDINGS: There is grade 1/2 anterolisthesis of L5 on S1 measuring 8 mm (25% listhesis) related to defects of the bilateral L5 pars interarticularis. There is severe disc height loss at L5-S1 with chronic degenerative endplate changes and superimposed subchondral marrow edema. Additional severe disc height loss with robust endplate edema is seen at L2-L3. There is moderate disc height loss at T11-T12 and L3-L4 mild disc height loss at L4-L5. Mild retrolisthesis is seen at L4 on L5. The distal spinal cord appears normal. The conus medullaris terminates normally at the T12-L1 level. The visualized paraspinal muscles and intra-abdominal and pelvic contents are within normal limits. SPINAL LEVELS: L1-L2: No posterior disc abnormality. Mild facet arthropathy. No spinal canal or neural foraminal stenosis. L2-L3: Disc bulging with superimposed central protrusion causing flattening of the ventral thecal sac and mass effect on the traversing right L3 nerve root in the subarticular region. Mild to moderate left neural foraminal stenosis with abutment of the exiting left L2 nerve root. L3-L4: Disc bulging with central protrusion causing indentation on the ventral thecal sac and encroachment on the subarticular zones. Moderate facet arthropathy. Mild right neural foraminal stenosis. No significant spinal canal stenosis. L4-L5: Bulging with broad-based central protrusion with small extruded component extending into the left paracentral region. Moderate facet arthropathy. No significant spinal canal stenosis. Mild to moderate bilateral neural foraminal stenosis. L5-S1: Grade 1/2 anterolisthesis with advanced facet arthropathy. Underlying diffuse disc bulging asymmetric to the right with extension into the bilateral neural foramina Severe right more than left neural foraminal stenosis with significant compression of both exiting L5 nerve roots. Right more than left subarticular stenosis. MR/MR lumbar spine wo con IMPRESSION: At L5-S1 there is grade 1/2 anterolisthesis related to defects of the bilateral L5 pars interarticularis. Severe right more than left neural foraminal stenosis with significant compression of both exiting L5 nerve roots. Additional multilevel spondylosis is detailed above without further high-grade nerve root compression. Endplate edema is present at L2-L3.
== END 2020-09-12 07:03 | disposition home or self-care (01) ==
LOC: HO.MRI 07:02
PROVIDERS: Visit Provider Anesthesiology
DX: M47.27 Other spondylosis with radiculopathy, lumbosacral region (principal)
CPT/HCPCS: 72148

== ENCOUNTER → 2020-09-19 08:08 | Outpatient (BNVA) | payer MEDICAID, SELFPAY | PROVIDERS: PCP Internal Medicine Geriatric Medicine; Visit Provider Surgery | DX: Z76.89 Persons encountering health services in other specified circumstances (principal) ==

== ENCOUNTER → 2020-09-21 08:00 | Outpatient (BNVA) | payer MEDICAID, SELFPAY | PROVIDERS: PCP Internal Medicine Geriatric Medicine; Visit Provider Nurse Practitioner Family | DX: M47.27 Other spondylosis with radiculopathy, lumbosacral region (principal) | CPT/HCPCS: 99212 ==

== ENCOUNTER → 2020-10-05 08:01 | Outpatient (BNVA) | payer MEDICAID, SELFPAY | PROVIDERS: PCP Internal Medicine Geriatric Medicine; Visit Provider Nurse Practitioner Family | DX: M47.27 Other spondylosis with radiculopathy, lumbosacral region (principal); Z79.899 Other long term (current) drug therapy | CPT/HCPCS: 99212 ==

== ENCOUNTER 2020-10-25 07:18 | Outpatient (REF) | payer MEDICAID, SELFPAY ==
--- NOTE | ~2020-10-25 | MR_ITS ---
EXAMINATION: MR CERVICAL SPINE WITHOUT CONTRAST CLINICAL INFORMATION: Bilateral hand weakness and numbness. Assess for cord compression. COMPARISON: There are no prior studies available for comparison. TECHNIQUE: MRI of the cervical spine was obtained using routine sequences without contrast. FINDINGS: VERTEBRAL BODIES AND PARASPINAL SOFT TISSUES: There is reversal of the normal cervical lordosis at the level of C4-C5. There is narrowing of intervertebral disc height at C4-C5 and C5-C6. There are degenerative endplate contour changes at C5-C6 with mild edematous signal anteriorly and on the right posteriorly. Vertebral body heights are maintained and no fractures are demonstrated. Overall, marrow signal is homogenous. There is a 1.1 cm right level IIA lymph node, which is likely reactive. CERVICOMEDULLARY JUNCTION AND VISUALIZED POSTERIOR FOSSA: The craniocervical and posterior fossa structures are normal. Accounting for artifact, spinal cord signal appears normal. SPINAL LEVELS: C2-C3: Disc contour is normal. There is no spinal cord compression or central stenosis. The neural foramina are patent. C3-C4: Disc contour is normal. There is no spinal cord compression or central stenosis. The neural foramina are patent. C4-C5: There is a posterior disc protrusion which effaces CSF ventral to the spinal cord without spinal cord compression or central stenosis. There is mild central stenosis. There are uncovertebral osteophytes. There is mild to moderate right foraminal narrowing. C5-C6: There is a posterior disc protrusion which mildly effaces CSF ventral to the spinal cord. There is no spinal cord compression or central stenosis. There are uncovertebral osteophytes. There is moderate to severe left foraminal narrowing. C6-C7: There is a small soft disc protrusion in the midline posteriorly without mass effect. There is no spinal cord compression or central stenosis. The neural foramina are patent bilaterally. C7-T1: Disc contour is normal. There is no spinal cord compression or central stenosis. The neural foramina are patent. MR/MR cervical spine wo con IMPRESSION: 1. At C4-C5 there is a posterior disc protrusion without spinal cord compression. There is mild central stenosis. There is mild to moderate right foraminal narrowing. 2. At C5-C6 there are edematous endplate signal changes. There is a posterior disc protrusion. There is no central stenosis or spinal cord compression. There is moderate to severe left foraminal narrowing. 3. At C6-C7 there is a small posterior disc protrusion without mass effect or spinal cord compression. There is no central stenosis.
== END 2020-10-25 07:19 | disposition home or self-care (01) ==
LOC: HO.MRI 07:18
PROVIDERS: Visit Provider Neurological Surgery
DX: M62.81 Muscle weakness (generalized) (principal); R20.0 Anesthesia of skin
CPT/HCPCS: 72141

== ENCOUNTER → 2020-10-26 08:20 | Outpatient (BNVA) | payer MEDICAID, SELFPAY | PROVIDERS: PCP Internal Medicine Geriatric Medicine; Visit Provider Surgery ==

== ENCOUNTER → 2020-11-02 08:01 | Outpatient (BNVA) | payer MEDICAID, SELFPAY | PROVIDERS: PCP Internal Medicine Geriatric Medicine; Visit Provider Nurse Practitioner Family | DX: M47.27 Other spondylosis with radiculopathy, lumbosacral region (principal) | CPT/HCPCS: 99212 ==

== ENCOUNTER → 2020-11-28 07:28 | Outpatient (BNVA) | payer MEDICAID, SELFPAY | PROVIDERS: PCP Internal Medicine Geriatric Medicine; Visit Provider Surgery ==

== ENCOUNTER → 2020-11-30 08:01 | Outpatient (BNVA) | payer MEDICAID, SELFPAY | PROVIDERS: PCP Internal Medicine Geriatric Medicine; Visit Provider Nurse Practitioner Family | DX: M47.27 Other spondylosis with radiculopathy, lumbosacral region (principal); Z79.899 Other long term (current) drug therapy | CPT/HCPCS: 99212 ==

== ENCOUNTER → 2021-01-04 08:19 | Outpatient (BNVA) | payer MEDICAID, SELFPAY | PROVIDERS: PCP Internal Medicine Geriatric Medicine; Visit Provider Nurse Practitioner Family | DX: M47.27 Other spondylosis with radiculopathy, lumbosacral region (principal) | CPT/HCPCS: 99212 ==

== ENCOUNTER → 2021-01-06 08:47 | Outpatient (BNVA) | payer MEDICAID, SELFPAY | PROVIDERS: PCP Internal Medicine Geriatric Medicine; Visit Provider Surgery ==

== ENCOUNTER → 2021-02-01 08:00 | Outpatient (BNVA) | payer MEDICAID, SELFPAY | PROVIDERS: PCP Internal Medicine Geriatric Medicine; Visit Provider Nurse Practitioner Family | DX: M47.27 Other spondylosis with radiculopathy, lumbosacral region (principal) | CPT/HCPCS: 99212 ==

== ENCOUNTER → 2021-03-01 08:00 | Outpatient (BNVA) | payer MEDICAID, SELFPAY | PROVIDERS: PCP Internal Medicine Geriatric Medicine; Visit Provider Nurse Practitioner Family | DX: M47.27 Other spondylosis with radiculopathy, lumbosacral region (principal); R03.0 Elevated blood-pressure reading, without diagnosis of hypertension; E11.39 Type 2 diabetes mellitus with other diabetic ophthalmic complication; Z88.5 Allergy status to narcotic agent; Z79.899 Other long term (current) drug therapy | CPT/HCPCS: 99212 ==

== ENCOUNTER → 2021-03-24 07:18 | Outpatient (BNVA) | payer MEDICAID, SELFPAY | PROVIDERS: PCP Internal Medicine Geriatric Medicine; Visit Provider Surgery | DX: K90.9 Intestinal malabsorption, unspecified (principal); Z79.899 Other long term (current) drug therapy | CPT/HCPCS: 99212 ==

== ENCOUNTER → 2021-04-05 08:00 | Outpatient (BNVA) | payer MEDICAID, SELFPAY | PROVIDERS: PCP Internal Medicine Geriatric Medicine; Visit Provider Nurse Practitioner Family | DX: M47.26 Other spondylosis with radiculopathy, lumbar region (principal); Z79.891 Long term (current) use of opiate analgesic | CPT/HCPCS: 99212 ==

== ENCOUNTER → 2021-05-08 10:53 | Outpatient (BNVA) | payer MEDICAID, SELFPAY | PROVIDERS: PCP Internal Medicine Geriatric Medicine; Visit Provider Anesthesiology ==

== ENCOUNTER → 2021-05-18 08:11 | Outpatient (BNVA) | payer MEDICAID, SELFPAY | PROVIDERS: PCP Internal Medicine Geriatric Medicine; Visit Provider Physician Assistant Surgical ==

== ENCOUNTER → 2021-05-31 14:10 | Outpatient (BNVA) | payer MEDICAID, SELFPAY | PROVIDERS: PCP Internal Medicine Geriatric Medicine; Visit Provider Anesthesiology ==

== ENCOUNTER 2021-06-05 08:59 | Outpatient (REF) | payer MEDICAID, SELFPAY ==
[2021-06-05 10:33] LABS: MANUAL DIFF FLAG NO
[2021-06-05 10:48] LABS: Basophils Percent Auto 0.8 % (0-2); Eosinophils Absolute Auto 0.1 X10*3/uL (0.0-0.4); Eosinophils Percent Auto 2.4 % (0-4); Hematocrit 43.8 % (42-52); Hemoglobin 14.6 g/dl (14.0-18.0); Lymphocytes Absolute Auto 1.2 X10*3/uL (1.2-4.9); Lymphocytes Percent Auto 30.5 % (20-40); Mean Corpuscular HGB Conc 33.3 g/dl (31.0-36.0); Mean Corpuscular Hemoglobin 29.4 pg (27.0-33.0); Mean Corpuscular Volume 88.1 fL (80-98); Mean Platelet Volume 10.8 fL (9.4-12.4); Monocytes Absolute Auto 0.3 X10*3/uL (0.1-1.2); Monocytes Percent Auto 8.9 % (2-11); Neutrophils Absolute Auto 2.2 X10*3/uL (2.0-8.3); Neutrophils Percent Auto 57.4 % (45-73); Platelet Count 246 X10*3/uL (160-400); Red Blood Count 4.97 X10*6/uL (4.60-5.80); Red Cell Distribution Width 13.6 % (11.0-16.0); White Blood Count 3.8 X10*3/uL (4.8-10.8)
[2021-06-05 11:05] LABS: Alanine Aminotransferase 9 U/L (0-40); Albumin Level 4.2 g/dL (3.5-5.0); Alkaline Phosphatase 55 U/L (39-117); Anion Gap 11 (12-20); Aspartate Amino Transferase 10 U/L (5-37); Blood Urea Nitrogen 20 mg/dL (9-16); Calcium 9.3 mg/dL (8.4-10.2); Carbon Dioxide 27 mmol/L (22-29); Chloride 106 mmol/L (96-108); Cholesterol 131 mg/dL; Estimated Glomerular Filt Rate > 60; Glucose Random 112 mg/dL (60-115); HDL Cholesterol 40 mg/dL; Iron 106 mcg/dL (45-160); LDL Cholesterol Calculated 79 mg/dl; Percent Iron Saturation 44 % (15-50); Potassium 4.4 mmol/L (3.3-5.1); Sodium 140 mmol/L (135-145); Total Iron Binding Capacity 240 mcg/dL (228-428); Total Protein 6.9 g/dL (6.5-8.0); Triglycerides 60 mg/dL; Unsaturated Iron Binding 134 ug/dL
[2021-06-05 11:15] LABS: Ferritin 138 ng/mL (20-250); TSH reflex Free T4 1.84 uIU/mL (0.32-4.0); Vitamin D 25-OH Total 24.1 ng/mL (>30)
[2021-06-05 11:32] LABS: Folate 4.7 ng/mL (> or = 4.0); Vitamin B12 437 pg/mL (200-900)
[2021-06-05 11:33] LABS: Estimated Average Glucose 151 mg/dL; Hemoglobin A1c % 6.9 %
[2021-06-06 16:16] LABS: Calcium (PTHI) 9.2 mg/dL (8.6-10.3); PTHI 20 pg/mL (14-64)
[2021-06-07 01:06] LABS: Insulin Level Total 2.9 uIU/mL
[2021-06-08 00:46] LABS: Zinc 86 mcg/dL (60-130)
[2021-06-09 20:01] LABS: Vitamin A 43 mcg/dL (38-98)
[2021-06-10 12:17] LABS: Vitamin B1 <6 nmol/L (8-30)
== END 2021-06-05 09:00 | disposition home or self-care (01) ==
LOC: HO.LAB 08:59
PROVIDERS: PCP Internal Medicine Geriatric Medicine; Visit Provider Physician Assistant Surgical
DX: Z98.84 Bariatric surgery status (principal)
CPT/HCPCS: 36415; 80053; 80061; 82306; 82607; 82728; 82746; 83036; 83525; 83540; 83970; 84425; 84443; 84590; 84630; 85025; 86140

== ENCOUNTER → 2021-06-23 08:04 | Outpatient (BNVA) | payer MEDICAID, SELFPAY | PROVIDERS: PCP Internal Medicine Geriatric Medicine; Visit Provider Physician Assistant Surgical ==

== ENCOUNTER → 2021-07-05 08:00 | Outpatient (BNVA) | payer MEDICAID, SELFPAY | PROVIDERS: PCP Internal Medicine Geriatric Medicine; Visit Provider Nurse Practitioner Family | DX: Z51.81 Encounter for therapeutic drug level monitoring (principal); M47.27 Other spondylosis with radiculopathy, lumbosacral region; G56.00 Carpal tunnel syndrome, unspecified upper limb | CPT/HCPCS: 99212 ==

== ENCOUNTER → 2021-08-02 08:30 | Outpatient (BNVA) | payer MEDICAID, SELFPAY | PROVIDERS: PCP Internal Medicine Geriatric Medicine; Visit Provider Nurse Practitioner Family | DX: Z51.81 Encounter for therapeutic drug level monitoring (principal); M47.27 Other spondylosis with radiculopathy, lumbosacral region; G56.00 Carpal tunnel syndrome, unspecified upper limb | CPT/HCPCS: 99212 ==

== ENCOUNTER → 2021-09-06 08:03 | Outpatient (BNVA) | payer MEDICAID, SELFPAY | PROVIDERS: PCP Internal Medicine Geriatric Medicine; Visit Provider Nurse Practitioner Family | DX: Z51.81 Encounter for therapeutic drug level monitoring (principal); F11.20 Opioid dependence, uncomplicated; M47.27 Other spondylosis with radiculopathy, lumbosacral region; G56.00 Carpal tunnel syndrome, unspecified upper limb | CPT/HCPCS: 99212 ==

== ENCOUNTER → 2021-09-13 08:13 | Outpatient (BNVA) | payer MEDICAID, SELFPAY | PROVIDERS: PCP Internal Medicine Geriatric Medicine; Referring Provider Internal Medicine Geriatric Medicine; Visit Provider Physician Assistant Surgical | DX: K90.9 Intestinal malabsorption, unspecified (principal); L98.7 Excessive and redundant skin and subcutaneous tissue; Z98.84 Bariatric surgery status | CPT/HCPCS: 99212 ==

== ENCOUNTER 2021-09-30 11:17 | Emergency (ER) | payer MEDICAID, SELFPAY ==
[2021-09-30 12:17] VITALS: BP 147/81; PULSE 113; RESP 19; TEMP 36.6; O2SAT 100; BMI 25.1
--- NOTE | 2021-09-30 14:43 | PC.NURSE ---
2ND CALL NOT IN [facility].
== END 2021-09-30 15:17 | disposition left against medical advice (07) ==
PROVIDERS: Emergency Provider Emergency Medicine; PCP Internal Medicine Geriatric Medicine
DX: R06.02 Shortness of breath (principal); E11.9 Type 2 diabetes mellitus without complications; Z98.84 Bariatric surgery status
CPT/HCPCS: 99281; 99282

== ENCOUNTER → 2021-10-04 08:10 | Outpatient (BNVA) | payer MEDICAID, SELFPAY | PROVIDERS: PCP Internal Medicine Geriatric Medicine; Visit Provider Nurse Practitioner Family | DX: Z51.81 Encounter for therapeutic drug level monitoring (principal); F11.20 Opioid dependence, uncomplicated; G56.00 Carpal tunnel syndrome, unspecified upper limb; M47.27 Other spondylosis with radiculopathy, lumbosacral region | CPT/HCPCS: 99212 ==

== ENCOUNTER → 2021-10-11 10:58 | Outpatient (BNVA) | payer MEDICAID, SELFPAY | PROVIDERS: PCP Internal Medicine Geriatric Medicine; Referring Provider Internal Medicine Geriatric Medicine; Visit Provider Physician Assistant Surgical | DX: L98.7 Excessive and redundant skin and subcutaneous tissue (principal); Z98.84 Bariatric surgery status | CPT/HCPCS: 99212 ==

== ENCOUNTER → 2021-10-12 12:54 | Outpatient (BNVA) | payer MEDICAID, SELFPAY | PROVIDERS: PCP Internal Medicine Geriatric Medicine; Referring Provider Internal Medicine; Visit Provider Internal Medicine | DX: R07.2 Precordial pain (principal); E11.8 Type 2 diabetes mellitus with unspecified complications; Z98.84 Bariatric surgery status | CPT/HCPCS: 93005; 99212 ==

== ENCOUNTER 2021-10-18 08:28 | Outpatient (REF) | payer MEDICAID, SELFPAY ==
--- NOTE | 2021-10-18 08:32 | EMG_ITS ---
This is a 46-year-old man with 1 year history of bilateral upper extremity pain, numbness, and tingling with the right being worse than the left. PHYSICAL EXAMINATION: On examination, he is alert, oriented with normal strength and reflex. No Tinel or Phalen sign. IMPRESSION: Carpal tunnel syndrome. Nerve conduction EMG study: Moderately severe carpal tunnel syndrome bilaterally. Limited study because of the patient's intolerance to the test and his declining of the EMG study. He had a vasovagal presyncope during the test. MD AMANDA Galloway/AARON / [phone]
== END 2021-10-18 08:29 | disposition home or self-care (01) ==
LOC: HO.NEURO 08:28
PROVIDERS: PCP Internal Medicine Geriatric Medicine; Visit Provider Internal Medicine
DX: G56.03 Carpal tunnel syndrome, bilateral upper limbs (principal)
CPT/HCPCS: 95912

== ENCOUNTER → 2021-10-24 10:46 | Outpatient (REF) | payer MEDICAID, SELFPAY ==
--- NOTE | 2021-10-24 10:49 | CA_ITS ---
Acquisition Time: 2021-10-24 10:46:04 Total Exercise Time: 00:10:10 Test Indications: CP, PALPITATIONS Medications: SEE CHART Protocol: JOSE L Max HR: 160 BPM 90% of Pred: 176 BPM Max BP: 208/088 mmHG Max Work Load: 12.0 METS Exercise stress test with exercise 10 min 10 sec of Jose L protocol, achievng 92% MPHR and request to stop due to fatigue, without anginal symptoms, without arrythmia, with BP 148/88 just prior to exercise and noe to 208/ 88 with exercise, without EKG change meeting criteria for ischemia. Echo images obtained by tech at rest and immediately post peak exercise. Definity contrast used. Test reviewed with Dr Redding STRESS ECHO : Technique : Images were obtained at rest and immediately post exercise within 50 seconds. Definity contrast was used to enhance endocardial definition. Images were obtained in multiple views and compared side to side. Findings : At rest images are of good quality. LV systolic functioin is normal with normal wall motion. Post exercise images are of borderline quality. There is good augmentation of overall LV systolic function with no regional wall motion abnormalities. Conclusion : Stress echo is negative for ischemia Referred By: Raul Wen Overread By: MJ REDDING MD
== END ==
LOC: HO.CARD 10:46
PROVIDERS: PCP Internal Medicine Geriatric Medicine; Visit Provider Internal Medicine
DX: R07.2 Precordial pain (principal)
CPT/HCPCS: 93350; Q9957

== ENCOUNTER → 2021-10-25 08:13 | Outpatient (BNVA) | payer MEDICAID, SELFPAY | PROVIDERS: PCP Internal Medicine Geriatric Medicine; Visit Provider Surgery ==

== ENCOUNTER → 2021-11-01 08:20 | Outpatient (BNVA) | payer MEDICAID, SELFPAY | PROVIDERS: PCP Internal Medicine Geriatric Medicine; Visit Provider Nurse Practitioner Family | DX: Z51.81 Encounter for therapeutic drug level monitoring (principal); F11.20 Opioid dependence, uncomplicated; G56.03 Carpal tunnel syndrome, bilateral upper limbs; M47.27 Other spondylosis with radiculopathy, lumbosacral region | CPT/HCPCS: 99212 ==

== ENCOUNTER → 2021-11-21 11:37 | Outpatient (BNVA) | payer MEDICAID, SELFPAY | PROVIDERS: PCP Internal Medicine Geriatric Medicine; Visit Provider Nurse Practitioner Family | DX: Z13.9 Encounter for screening, unspecified (principal) ==

== ENCOUNTER → 2021-11-28 08:00 | Outpatient (BNVA) | payer MEDICAID, SELFPAY | PROVIDERS: PCP Internal Medicine Geriatric Medicine; Visit Provider Nurse Practitioner Family | DX: Z51.81 Encounter for therapeutic drug level monitoring (principal); F11.20 Opioid dependence, uncomplicated | CPT/HCPCS: 99211 ==

== ENCOUNTER 2021-11-29 05:56 | Day surgery (SDC) | payer MEDICAID, SELFPAY ==
[2021-11-08 10:05] VITALS: BMI 27.5
[2021-11-15 08:03] LABS: MANUAL DIFF FLAG NO
[2021-11-15 08:20] LABS: Basophils Percent Auto 0.9 % (0-2); Eosinophils Absolute Auto 0.1 X10*3/uL (0.0-0.4); Eosinophils Percent Auto 2.7 % (0-4); Hematocrit 43.7 % (42.0-52.0); Hemoglobin 14.1 g/dl (14.0-18.0); Imm Gran Abs Auto 0.01 X10*3/uL (0.00-0.03); Imm Gran Pct Auto 0.2 % (0.0-0.4); Lymphocytes Absolute Auto 1.5 X10*3/uL (1.2-4.9); Lymphocytes Percent Auto 32.9 % (20-40); Mean Corpuscular HGB Conc 32.3 g/dl (31.0-36.0); Mean Corpuscular Hemoglobin 28.8 pg (27.0-33.0); Mean Corpuscular Volume 89.2 fL (80.0-98.0); Mean Platelet Volume 10.2 fL (9.4-12.4); Monocytes Absolute Auto 0.4 X10*3/uL (0.1-1.2); Monocytes Percent Auto 8.8 % (2-11); Neutrophils Absolute Auto 2.4 x10*3/uL (2.0-8.3); Neutrophils Percent Auto 54.5 % (45-73); Platelet Count 271 X10*3/uL (160-400); Red Cell Distribution Width 13.2 % (11.0-16.0); White Blood Count 4.4 X10*3/uL (4.8-10.8)
[2021-11-15 08:25] LABS: INTERNATIONAL NORM RATIO 1.1 (0.9-1.1); Prothrombin Time 12.2 SEC (9.9-13.0)
[2021-11-15 08:27] LABS: Partial Thromboplastin Time 35.2 SEC (24.1-38.0)
[2021-11-15 08:42] LABS: Alanine Aminotransferase 10 U/L (0-40); Albumin Level 4.1 g/dL (3.5-5.0); Alkaline Phosphatase 52 U/L (39-117); Anion Gap 12 (12-20); Aspartate Amino Transferase 11 U/L (5-37); Bilirubin Total 0.6 mg/dL (0.0-1.0); Blood Urea Nitrogen 28 mg/dL (9-16); Calcium 9.5 mg/dL (8.4-10.2); Carbon Dioxide 28 mmol/L (22-29); Chloride 105 mmol/L (96-108); Creatinine Clr Calc Pharmacy 86.5; Estimated Glomerular Filt Rate > 60; Glucose Random 209 mg/dL (60-115); Potassium 4.2 mmol/L (3.3-5.1); Sodium 141 mmol/L (135-145); Total Protein 7.1 g/dL (6.5-8.0)
--- NOTE | 2021-11-22 11:35 | P.CONAN_ITS ---
Documented by User: Kaylyn Rg NP 11/22/21 11:41 HPI - Anesthesia Eval Consult details Narrative: 46yo M for Panniculectomy s/p gastric sleeve 06/2020 with ETT 7.5 Cardiac optimized In the exercise stress test, reached 12 Mets.? No angina or EKG evidence of ischemia.? Hypertensive blood pressure response.? Echocardiographic component was negative for ischemia. May proceed with paniculectomy.? Low cardiac risk. *FENTANYL causes N/V* PMFSH Active Problems Active Problems: All Active Problems (Updated 11/21/21 @ 16:56 by Rashmi Carter NP) Chronic, continuous use of opioids (Acute) Obesity (Acute) Pre-op evaluation (Acute) Congenital intra-abdominal adhesions (Acute) S/P laparoscopic sleeve gastrectomy (Acute) Overweight (Acute) Spondylosis of lumbosacral spine with radiculopathy (Acute) Pre-procedure lab exam (Acute) Intestinal malabsorption (Acute) Carpal tunnel syndrome (Acute) Excess skin (Acute) Precordial chest pain (Acute) Type 2 diabetes mellitus with unspecified complications (Acute) Cellulitis (Acute) Panniculitis (Acute) Asthma (Acute) GERD (gastroesophageal reflux disease) (Acute) Hypertension (Acute) Obesity (Acute) 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 Sister No problems noted. Son No problems noted. Daughter No problems noted. Surgical History Surgical History History of esophagogastroduodenoscopy (EGD) History of sleeve gastrectomy Hx of circumcision Hx of inguinal hernia repair Social History Social History Are you a primary intensive care nurse to a significant other at home: No Do you presently have visiting nurse or other home services: No Alcohol intake: never Patient Tobacco Use Status: Former Tobacco user Quit Date: 2014 Tobacco use type: Cigarette Second Hand Smoke Exposure: No Use of substances other than those prescribed or required for medical reasons: No Have you been hit, kicked, punched, or otherwise hurt by someone within the past year? If so, by whom?: No Are you DNR?: No Advance Directives: No Advance Directives Information Provided: Yes Advance Directives on File: No Recently lost weight without trying: No Eating poorly because of decreased appetite: No Nutrition Risks: No Nutritional Risk Poor oral hygiene: No service: No Current occupational status: unemployed Meds Allergies Allergy/AdvReac Type Severity Reaction Status Date / Time soy Allergy Severe diarrhea Verified 11/28/21 08:56 fentanyl AdvReac Mild Nausea and Verified 11/28/21 08:56 Vomiting Home Medications Medication Instructions Recorded Confirmed Last Taken Type dextroamphetamine-amphetamine ER 20 mg PO DAILY 09/21/20 11/28/21 Unknown History 20 mg 24hr capsule,extend release (Adderall XR) metformin 1,000 mg tablet 1,000 mg PO BID 09/13/21 11/28/21 Unknown History Exam Exam Date and Time: November 22, 2021 1135 Height,Weight and Vital Signs: Height 5 ft 11 in Weight 89.471 kg Pertinent Lab Results Pertinent Lab Results: Laboratory Tests 11/15/21 11/15/21 11/15/21 08:00 08:00 08:00 WBC 4.4 L RBC 4.90 Hgb 14.1 Hct 43.7 MCV 89.2 MCH 28.8 MCHC 32.3 RDW 13.2 Plt Count 271 MPV 10.2 Immature Gran % (Auto) 0.2 Neut % (Auto) 54.5 Lymph % (Auto) 32.9 [place] % (Auto) 8.8 Eos % (Auto) 2.7 Baso % (Auto) 0.9 Lymph # (Auto) 1.5 [place] # (Auto) 0.4 Eos # (Auto) 0.1 Baso # (Auto) 0.0 Abs Immat Gran (auto) 0.01 Absolute Neuts (auto) 2.4 Absolute Nucleated RBC 0.000 Nucleated RBC % (auto) 0.0 PT 12.2 INR 1.1 APTT 35.2 Sodium 141 Potassium 4.2 Chloride 105 Carbon Dioxide 28 Anion Gap 12 BUN 28 H Creatinine 1.16 Estim Creat Clear Calc 86.5 Estimated GFR > 60 Random Glucose 209 H D Calcium 9.5 Total Bilirubin 0.6 AST 11 ALT 10 Alkaline Phosphatase 52 Total Protein 7.1 Albumin 4.1 Blood Type Antibody Screen 11/15/21 08:00 WBC RBC Hgb Hct MCV MCH MCHC RDW Plt Count MPV Immature Gran % (Auto) Neut % (Auto) Lymph % (Auto) [place] % (Auto) Eos % (Auto) Baso % (Auto) Lymph # (Auto) [place] # (Auto) Eos # (Auto) Baso # (Auto) Abs Immat Gran (auto) Absolute Neuts (auto) Absolute Nucleated RBC Nucleated RBC % (auto) PT INR APTT Sodium Potassium Chloride Carbon Dioxide Anion Gap BUN Creatinine Estim Creat Clear Calc Estimated GFR Random Glucose Calcium Total Bilirubin AST ALT Alkaline Phosphatase Total Protein Albumin Blood Type A Positive Antibody Screen NEGATIVE Narrative Narrative: EKG 10/2021 sinus rhythm at 80/Min; possible PVC.? Early repolarization changes.? Normal NC/QTc Exercise stress 10/2021 Protocol: JOSE L ? Max HR: 160 BPM? 90% of? Pred: 176 BPM Max BP: 208/088 mmHG Max Work Load: 12.0 METS ? Exercise stress test with exercise 10 min 10 sec of Jose L protocol, achievng 92% ?MPHR and request to stop due to fatigue, without anginal symptoms, without ?arrythmia, with BP 148/88 just prior to exercise and noe to 208/ 88 with ?exercise, without EKG change meeting criteria for ischemia. Echo images ?obtained by tech at rest and immediately post peak exercise. Definity contrast ?used. Test reviewed with Dr Redding Stress Echo Findings : ? At rest images are of good quality. LV systolic functioin is normal with normal wall motion. Post exercise images are of borderline quality. There is good augmentation of overall LV systolic function with no regional? wall motion abnormalities. ? Conclusion : ? 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 Sister No problems noted. Son No problems noted. Daughter No problems noted. Family history of problems with anesthesia: No Surgical History Surgical History History of esophagogastroduodenoscopy (EGD) History of sleeve gastrectomy Hx of circumcision Hx of inguinal hernia repair History of Problems with Anesthesia: No Social History Social History Are you a primary intensive care nurse to a significant other at home: No Do you presently have visiting nurse or other home services: No Alcohol intake: never Patient Tobacco Use Status: Former Tobacco user Quit Date: 2014 Tobacco use type: Cigarette Second Hand Smoke Exposure: No Use of substances other than those prescribed or required for medical reasons: No Have you been hit, kicked, punched, or otherwise hurt by someone within the past year? If so, by whom?: No Are you DNR?: No Advance Directives: No Advance Directives Information Provided: Yes Advance Directives on File: No Recently lost weight without trying: No Eating poorly because of decreased appetite: No Nutrition Risks: No Nutritional Risk Poor oral hygiene: No service: No Current occupational status: unemployed Meds Allergies Allergy/AdvReac Type Severity Reaction Status Date / Time soy Allergy Severe diarrhea Verified 11/28/21 08:56 fentanyl AdvReac Mild Nausea and Verified 11/28/21 08:56 Vomiting Home Medications Medication Instructions Recorded Confirmed Last Taken Type dextroamphetamine-amphetamine ER 20 mg PO DAILY 09/21/20 11/28/21 Unknown History 20 mg 24hr capsule,extend release (Adderall XR) metformin 1,000 mg tablet 1,000 mg PO BID 09/13/21 11/28/21 Unknown History Exam Airway Mallampati Class: II TM Dist: >3cm Neck ROM: Full Loose/Missing/Broken Teeth: Yes Heart: [id number] Lungs: cta b/l Assessment and Plan Assessment Anesthesia Assessment: Anesthesia Plan Discussed Final Anesthetic Review Family History of Problems with Anesthesia: No History of Problems with Anesthesia: No NPO: Yes ASA Class: III Final Preanesthetic Review: No Changes in Pt Med Stat, Meds/Allgs Chart Reviewed, Consent Obtained/Reviewed and Anes Risks/Benef Reviewed Patient Risk: Intermediate Procedure Risk: Intermediate Assessment/Block/Sedation in SS: Assess/Block/Sedation-SS Anesthetic Plan Anesthetic Plan: GA and Agree w/ Assess. and Plan Disposition: Standard PACU
--- NOTE | 2021-11-25 01:18 | MHC.SHP ---
Pre-Procedural Eval Section A Date of Service: 11/25/21 The patient is an INPATIENT: No The History & Physical has been completed within 30 days and I have reviewed it.: Yes Section B Chief Complaint: excessive and redundant skin Relevant Family History (Specify if Yes): No Relevant Social History: None Present Medications: None Medical History: No relevant PMH History of Previous Operations: Relevant previous surgery/procedure and date(s) (sleeve gastrectomy) Allergies: Allergies Allergy/AdvReac Type Severity Reaction Status Date / Time soy Allergy Severe diarrhea Verified 11/01/21 08:38 fentanyl AdvReac Mild Nausea and Verified 11/08/21 08:53 Vomiting Review of Systems Sugical H&P ROS: Negative: Constitution, Cardiovascular, Respiratory, Neurological, Psychiatric, Hem-Onc, Allergic/Immunologic, Gastrointestinal, Genitourinary, Musculoskeletal, Integumentary, Endocrine and Eyes/Ears/Nose/Throat Exam Surgical H&P Exam: Normal: HEENT, Normal: Heart, Normal: Lungs, Normal: Extremities, Normal: Abdomen, Normal: Skin and Normal: Neurological Plan Diagnosis/Plan: Unchanged I have reviewed the history and physical and performed a pertinent physical examination on my patient. No changes have occurred unless specified.
[2021-11-29] VITALS (15 sets, daily range): BP systolic 121–148; BP diastolic 64–81; PULSE 54–69; RESP 12–18; TEMP 36.2–36.4; O2SAT 93–100
[2021-11-29 06:28] LABS: Glucose, Whole Blood 148 mg/dL (60-115)
[2021-11-29 06:44] LABS: COVID-19 Test Negative (Negative); IDNOW Serial# 16C4AD1C
--- NOTE | 2021-11-29 11:48 | PM.OP ---
Brief Operative Note Date of Service: 11/29/21 Pre-op diagnosis: Ppanniculitis Post-op diagnosis: same Procedure: PROCEDURE: Panniculectomy with umbilical transposition and omental flap INDICATION: This a 46 year old male who underwent laparoscopic sleeve gastrectomy on 07/05/2020. He had an excellent result achieving a BMI of 26kg/m2 with a total weight loss of 78.8lbs, or 29.74% of his TBWL. As a result, he has developed panniculitis which has not resolved despite continuous use of clotrimazole ointment. On exam he has extreme skin laxity due to massive weight loss and age with the abdominal pannus completely hiding the genitalia. Panniculectomy was recommended. We discussed the two options for the panniculectomy of using a combined vertical and horizontal incisions or just a horizontal (bikini) incision. It was my recommendation to do only horizontal incision based on her body habitus and skin laxity. The patient agreed with this. Risks and complications were discussed with the patient including bleeding, infection, umbilical loss, flap necrosis, asymmetry, dehiscence, seroma, VTE. The patient understood the risks and was in agreement to proceed with surgery. PROCEDURE: The incisions were appropriately marked at the preop area with the patient standing and laying down. After induction of general anesthesia a Stephen catheter and pneumatic compression devices were placed. The patient was prepped and draped in the usual sterile manner and the incisions were marked again and confirmed. The skin was infiltrated with lidocaine and epinephrine. The #10 blade scalpel was used for the large incisions and the #15 blade scalpel for the umbilicus. Cautery was used to divide the subcutaneous tissues until the fascia was identified. Then I used the Thunderbeat (Olympus) to separate the pannus from the fascia. The inferior incision was made initially and I mobilized the flap for a several centimeters cephalad to the umbilicus. The umbilicus was incised circumferentially and detached from the surrounding tissues all the way to the fascia while its stalk was preserved. With the patient in reflex position I confirmed that the skin flaps were appropriate and would allow for the tissues to come together with reasonable tension. At that point a horizontal incision was made 4 cm above the umbilicus. #10 blade was used for the skin, cautery for the dermis and the Thunderbeat for the remaining tissues. An omental flap was raised from the upper flap in order to fill the space under the skin and support the closure of the two flaps. In addition the inferior flap was mobilized caudally for a few centimeters to create a space for the omental flap as well as relieve tension from the closure. A circumferential incision was made at the area where the umbilicus would be re-implanted. The umbilicus was appropriately oriented and was delivered through the defect and was secured in place with a Amorita. No bleeding was noted anywhere. One Micheal drain was placed from the right corner of the horizontal incision across the wound and was secured in place with a Surgipro suture. The omental flap was secured under the inferior flap with several interrupted 3.0 Monocryl sutures. The two flaps were brought together and were attached at the midline of the horizontal incision with a #3.0 Monocryl suture. At that point the umbilicus was properly oriented and was re-approximated to the skin with 8 interrupted 3.0 Monocryl sutures. In a similar fashion the skin flaps were re-approximated with multiple 3.0 Monocryl sutures. The skin was closed in all incisions and umbilicus with 4.0 Monocryl sutures. Steri-strips, xeroform gauzes and gauzes were used to cover the incisions. An abdominal binder was also placed. The was awaken and was transferred to the recover room in a stable condition. I was present and performed the entire procedure. Janeth Villasenor was the photographer assistant. Onel Remy MD, PhD, FACS Surgeon: Bola Remy MD Surgeon: Bola Remy MD Anesthesia: GETA and local Was an Assistant Real Estate Manager used for this Procedure?: Yes Assistant Real Estate Manager: Elder Villasenor Estimated blood loss (mL): 10 IV fluids (mL): 2,000 Urine output (mL): 0 (No Stephen to record) Pathology: other (Abdominal pannus) Condition: stable Disposition: PACU
[2021-11-29] MEDS: oxyCODONE HCl Immed Release 5 MG TABLET 10 MG PO (12:57)
[2021-11-29] MEDS: Famotidine/PF 20 MG/2 ML VIAL IVPUSH (13:32)
== END 2021-11-29 16:27 | disposition home or self-care (01) ==
PROVIDERS: PCP Internal Medicine Geriatric Medicine; Visit Provider Surgery
PROC: 0JB80ZZ Excision of Abdomen Subcutaneous Tissue and Fascia, Open Approach (ICD-10-PCS; CPT 15830; principal; 2021-11-29 07:30)
DX: L98.7 Excessive and redundant skin and subcutaneous tissue (principal); M79.3 Panniculitis, unspecified; Z98.84 Bariatric surgery status; Z90.3 Acquired absence of stomach [part of]; K90.9 Intestinal malabsorption, unspecified; K21.9 Gastro-esophageal reflux disease without esophagitis; I10 Essential (primary) hypertension; J45.909 Unspecified asthma, uncomplicated; K76.0 Fatty (change of) liver, not elsewhere classified; E11.8 Type 2 diabetes mellitus with unspecified complications; Z79.84 Long term (current) use of oral hypoglycemic drugs; E66.9 Obesity, unspecified; Z68.31 Body mass index [BMI] 31.0-31.9, adult; Z79.899 Other long term (current) drug therapy; Z88.8 Allergy status to other drugs, medicaments and biological substances; Z87.891 Personal history of nicotine dependence
CPT/HCPCS: 15830; 15847; 36415; 80053; 82947; 85025; 85610; 85730; 86850; 86900; 86901; 87635; 88304; J0131; J0690; J1100; J1170; J2250; J2405; J3010

== ENCOUNTER 2021-12-01 07:26 | Emergency (ER) | payer MEDICAID, SELFPAY ==
--- NOTE | ~2021-12-01 | US_ITS ---
EXAMINATION: US VENOUS ULTRASOUND WITH DOPPLER LOWER EXTREMITY, RIGHT CLINICAL INFORMATION: Pain. Recent surgery. COMPARISON: None TECHNIQUE: Ultrasound of the deep veins is performed from the hip to the calf with compression sonography and color and pulse Doppler assessment. Spectral analysis with color-flow imaging is performed. FINDINGS: There is normal venous compression and respiratory variation and augmented flow. The visualized common femoral vein, superficial femoral vein, profunda femoral vein, popliteal vein, and the trifurcation region shows no evidence of deep venous thrombosis. There is no significant popliteal fossa cyst. US/US venous duplex LE RT IMPRESSION: No DVT demonstrated in the right lower extremity.
[2021-12-01 07:38] VITALS: BP 134/60; PULSE 80; RESP 16; TEMP 36.1; O2SAT 96; BMI 25.1
--- NOTE | 2021-12-01 07:48 | ED_ITS ---
HPI - Extremity Problem General Chief complaint: Extremity Injury, Lower Stated complaint: Pain in both feet Time Seen by Provider: 12/01/21 07:38 Source: patient and old records reviewed Mode of arrival: ambulatory Limitations: no limitations History of Present Illness MD Complaint: extremity pain and other (R leg calf pain and his toes feel tingly) Onset (ago): hour(s) (few) Pain Consistency: constant Location: right and lower extremity (foot calf) Quality: constant and other (throbbing) Radiation: proximal Relieving factors: nothing Exacerbating factors: walking and palpation Associated symptoms: denies other symptoms Context: recent surgery/procedure (had panniculectomy on 11/29) Related Data Home Medications Medication Instructions Recorded Confirmed dextroamphetamine-amphetamine ER 20 mg PO DAILY 09/21/20 11/28/21 20 mg 24hr capsule,extend release (Adderall XR) metformin 1,000 mg tablet 1,000 mg PO BID 09/13/21 11/28/21 Previous Rx's Medication Instructions Recorded Brace,wrist #1 ea 08/02/21 cephalexin 500 mg capsule 500 mg PO Q12H #30 cap 10/25/21 thiamine HCl (vitamin B1) 100 mg 100 mg PO DAILY #30 tab 10/25/21 tablet naloxone 4 mg/actuation nasal 4 mg INTRANASAL Q2M PRN #2 ea 11/01/21 spray (Narcan) oxycodone 10 mg tablet 10 mg PO TID PRN #90 tab 11/21/21 diazepam 5 mg tablet (Valium) 5 mg PO TID PRN #4 tab 12/01/21 Allergies Allergy/AdvReac Type Severity Reaction Status Date / Time soy Allergy Severe diarrhea Verified 11/28/21 08:56 fentanyl AdvReac Mild Nausea and Verified 11/28/21 08:56 Vomiting Review of Systems Review of Systems: Constitutional : No Fever, No Chills ENT/Mouth : No Ear Pain, No Hoarseness, No sore throat Eyes: No Eye Pain, No Swelling, No Redness, No Foreign Body Cardiovascular : No Chest Pain, No SOB Respiratory : No Cough, No Dyspnea Gastrointestinal : No Nausea, No Vomiting, No Diarrhea, No abdominal Pain Genitourinary : No Dysuria, No Hematuria Musculoskeletal : positive joint pain, pos Myalgias, No Joint Swelling Skin : No Skin lacerations, No rash Neuro : No Weakness, pos Numbness, No Loss of Consciousness, No Dizziness, No Headache COUNTS INCLUDE 234 BEDS AT THE [facility] Past Medical History Attestation statement: The following information was validated with the patient. 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 Sister No problems noted. Son No problems noted. Daughter No problems noted. Social History Social History Are you a primary home health care case manager to a significant other at home: No Do you presently have visiting nurse or other home services: No Alcohol intake: never Patient Tobacco Use Status: Former Tobacco user Quit Date: 2014 Tobacco use type: Cigarette Second Hand Smoke Exposure: No Advance Directives: No Advance Directives Information Provided: No service: No Current occupational status: unemployed Physical Exam Vital Signs: Vital Signs: Last Vital Signs Temp 97 F 12/01/21 07:38 Pulse 80 12/01/21 07:38 Resp 16 12/01/21 07:38 BP 134/60 12/01/21 07:38 Pulse Ox 96 12/01/21 07:38 BMI result Body Mass Index 25.1 Appearance: Alert. Oriented X3. No acute distress. Eyes: Pupils equal, round and reactive to light. ENT: Pharynx normal. Neck: Normal inspection. Neck supple. CVS: Normal heart rate and rhythm. Pulses normal. Respiratory: No respiratory distress. Abdomen: Soft and nontender. Binder in place Skin: Skin warm and dry. Normal skin color. Normal skin turgor. Extremities: No lower ext edema, R calf ttp - bounding pulses in DP/PT and pop fossa in RLE, normal temperature, no color changes, warm to the touch. He states he feels his toes are numb. Pain and cramping when palpating his R calf and he pulls the leg away during exam. L leg appears normal no pain. Neuro: Oriented X 3. No motor deficit. No sensory deficit. Course Course Course Narrative: wound care [facility] called and gave instructions to our RN - dressing to be changed here, labs wnl, US negative stable for DC at this time MDM - Extremity (Nontraumatic) MDM Narrative Medical decision making narrative: 46 yo male with hx of bariatric surgery, chronic back pain now on oxycodone 10mg TID (though has no back pain today), just underwent panniculectomy on 11/29 for which he has no complaints. He has been sleeping on the sofa at home and this morning woke up with pain in R calf and R foot it is throbbing. He has bounding pulses, no swelling, foot is warm to the touch but he feels that his toes are tingling. His foot is warm there are no signs of infection. It seems like a cramp at this time. Will obtain US luis to r/o DVT, PO medications for spasm. Seems MSK. I do not appreciate any arterial occlusion or skin infection. Lab Data Result diagrams: 12/01/21 07:56 12/01/21 07:56 Labs: Lab Results 12/01/21 12/01/21 Range/Units 07:56 07:56 WBC 6.7 (4.8-10.8) X10*3/uL RBC 4.04 L (4.60-5.80) X10*6/uL Hgb 11.9 L (14.0-18.0) g/dl Hct 35.9 L (42.0-52.0) % MCV 88.9 (80.0-98.0) fL MCH 29.5 (27.0-33.0) pg MCHC 33.1 (31.0-36.0) g/dl RDW 13.4 (11.0-16.0) % Plt Count 206 (160-400) X10*3/uL MPV 9.6 (9.4-12.4) fL Immature Gran % (Auto) 0.4 (0.0-0.4) % Neut % (Auto) 66.7 (45-73) % Lymph % (Auto) 20.7 (20-40) % [place] % (Auto) 11.2 H (2-11) % Eos % (Auto) 0.7 (0-4) % Baso % (Auto) 0.3 (0-2) % Lymph # (Auto) 1.4 (1.2-4.9) X10*3/uL [place] # (Auto) 0.8 (0.1-1.2) X10*3/uL Eos # (Auto) 0.1 (0.0-0.4) X10*3/uL Baso # (Auto) 0.0 (0.0-0.2) X10*3/uL Abs Immat Gran (auto) 0.03 (0.00-0.03) X10*3/uL Absolute Neuts (auto) 4.5 (2.0-8.3) x10*3/uL Absolute Nucleated RBC 0.000 (0.0-0.012) X10*3/uL Nucleated RBC % (auto) 0.0 (0.0-0.2) /100WBC Sodium 138 (135-145) mmol/L Potassium 3.7 (3.3-5.1) mmol/L Chloride 104 (96-108) mmol/L Carbon Dioxide 28 (22-29) mmol/L Anion Gap 10 L (12-20) BUN 17 H (9-16) mg/dL Creatinine 0.83 (0.5-1.4) mg/dL Estim Creat Clear Calc 120.9 Estimated GFR > 60 Random Glucose 155 H (60-115) mg/dL Calcium 8.4 D (8.4-10.2) mg/dL Magnesium 1.8 (1.6-2.6) mg/dL Total Creatine Kinase 57 (38-174) U/L Discharge Plan Discharge Clinical Impression: Acute leg pain Qualifiers: Laterality: right Qualified Code(s): M79.604 - Pain in right leg Patient Disposition: Home, Self-Care Instructions: Leg Cramps (ED), Leg Pain (ED) Additional Instructions: return to ED for any worsening symptoms or concerns labs and US of leg within normal limits Prescriptions: New diazepam [Valium] 5 mg tablet 5 mg PO TID PRN (Reason: muscle spasm) Qty: 4 0RF No Action thiamine HCl (vitamin B1) 100 mg tablet 100 mg PO DAILY Qty: 30 2RF dextroamphetamine-amphetamine [Adderall XR] 20 mg capsule,extended release 24hr 20 mg PO DAILY 0RF metformin 1,000 mg tablet 1,000 mg PO BID 0RF (DME) Brace,wrist Misc See Rx Instructions .Route Qty: 1 0RF Rx Instructions: As directed cephalexin 500 mg capsule 500 mg PO Q12H Qty: 30 2RF naloxone [Narcan] 4 mg/actuation spray,non-aerosol 4 mg intranasal Q2M PRN (Reason: opioid overdose) Qty: 2 0RF Rx Instructions: spray 1 dose into ONE nostril; alternate nostrils w each dose until help arrives oxycodone 10 mg tablet 10 mg PO TID PRN (Reason: pain, severe) Qty: 90 0RF
[2021-12-01 07:59] LABS: MANUAL DIFF FLAG NO
[2021-12-01] MEDS: oxyCODONE HCl Immed Release 5 MG TABLET PO (08:04)
[2021-12-01] MEDS: diazePAM 5 MG TABLET PO (08:04)
[2021-12-01 08:06] LABS: Basophils Percent Auto 0.3 % (0-2); Eosinophils Absolute Auto 0.1 X10*3/uL (0.0-0.4); Eosinophils Percent Auto 0.7 % (0-4); Hematocrit 35.9 % (42.0-52.0); Hemoglobin 11.9 g/dl (14.0-18.0); Imm Gran Abs Auto 0.03 X10*3/uL (0.00-0.03); Imm Gran Pct Auto 0.4 % (0.0-0.4); Lymphocytes Absolute Auto 1.4 X10*3/uL (1.2-4.9); Lymphocytes Percent Auto 20.7 % (20-40); Mean Corpuscular HGB Conc 33.1 g/dl (31.0-36.0); Mean Corpuscular Hemoglobin 29.5 pg (27.0-33.0); Mean Corpuscular Volume 88.9 fL (80.0-98.0); Mean Platelet Volume 9.6 fL (9.4-12.4); Monocytes Absolute Auto 0.8 X10*3/uL (0.1-1.2); Monocytes Percent Auto 11.2 % (2-11); Neutrophils Absolute Auto 4.5 x10*3/uL (2.0-8.3); Neutrophils Percent Auto 66.7 % (45-73); Platelet Count 206 X10*3/uL (160-400); Red Blood Count 4.04 X10*6/uL (4.60-5.80); Red Cell Distribution Width 13.4 % (11.0-16.0); White Blood Count 6.7 X10*3/uL (4.8-10.8)
[2021-12-01 08:24] LABS: Anion Gap 10 (12-20); Blood Urea Nitrogen 17 mg/dL (9-16); Calcium 8.4 mg/dL (8.4-10.2); Carbon Dioxide 28 mmol/L (22-29); Chloride 104 mmol/L (96-108); Creatinine Clr Calc Pharmacy 120.9; Estimated Glomerular Filt Rate > 60; Glucose Random 155 mg/dL (60-115); Magnesium 1.8 mg/dL (1.6-2.6); Potassium 3.7 mmol/L (3.3-5.1); Sodium 138 mmol/L (135-145)
[2021-12-01 10:10] VITALS: BP 139/75; PULSE 74; RESP 16; O2SAT 96
== END 2021-12-01 10:19 | disposition home or self-care (01) ==
PROVIDERS: Emergency Provider Emergency Medicine; PCP Internal Medicine Geriatric Medicine
DX: M79.661 Pain in right lower leg (principal); I10 Essential (primary) hypertension; E11.9 Type 2 diabetes mellitus without complications; Z98.84 Bariatric surgery status
CPT/HCPCS: 36415; 80048; 82550; 83735; 85025; 93971; 99284

== ENCOUNTER → 2021-12-05 14:28 | Outpatient (BNVA) | payer MEDICAID, SELFPAY | PROVIDERS: PCP Internal Medicine Geriatric Medicine; Referring Provider Internal Medicine Geriatric Medicine; Visit Provider Surgery | DX: M79.3 Panniculitis, unspecified (principal) | CPT/HCPCS: 99212 ==

== ENCOUNTER → 2021-12-12 09:00 | Outpatient (BNVA) | payer MEDICAID, SELFPAY | PROVIDERS: PCP Internal Medicine Geriatric Medicine; Referring Provider Internal Medicine Geriatric Medicine; Visit Provider Physician Assistant Surgical | DX: Z48.89 Encounter for other specified surgical aftercare (principal); Z98.84 Bariatric surgery status | CPT/HCPCS: 99212 ==

== ENCOUNTER → 2021-12-20 08:41 | Outpatient (BNVA) | payer MEDICAID, SELFPAY | PROVIDERS: PCP Internal Medicine Geriatric Medicine; Visit Provider Orthopaedic Surgery | DX: Z48.817 Encounter for surgical aftercare following surgery on the skin and subcutaneous tissue (principal); G56.03 Carpal tunnel syndrome, bilateral upper limbs; Z98.890 Other specified postprocedural states | CPT/HCPCS: 99202; 99212 ==

== ENCOUNTER → 2021-12-27 08:34 | Outpatient (BNVA) | payer MEDICAID, SELFPAY | PROVIDERS: PCP Internal Medicine Geriatric Medicine; Referring Provider Internal Medicine Geriatric Medicine; Visit Provider Physician Assistant Surgical | DX: Z98.890 Other specified postprocedural states (principal) | CPT/HCPCS: 99212 ==

== ENCOUNTER → 2022-01-02 08:24 | Outpatient (BNVA) | payer MEDICAID, SELFPAY | PROVIDERS: PCP Internal Medicine Geriatric Medicine; Visit Provider Nurse Practitioner Family | DX: Z51.81 Encounter for therapeutic drug level monitoring (principal); F11.20 Opioid dependence, uncomplicated | CPT/HCPCS: 99211 ==

== ENCOUNTER → 2022-01-05 10:15 | Outpatient (BNVA) | payer MEDICAID, SELFPAY | PROVIDERS: PCP Internal Medicine Geriatric Medicine; Referring Provider Internal Medicine Geriatric Medicine; Visit Provider Physician Assistant Surgical | DX: Z48.89 Encounter for other specified surgical aftercare (principal) | CPT/HCPCS: 99212 ==

== ENCOUNTER → 2022-02-06 08:23 | Outpatient (BNVA) | payer MEDICAID, SELFPAY | PROVIDERS: PCP Internal Medicine Geriatric Medicine; Visit Provider Nurse Practitioner Family | DX: Z48.817 Encounter for surgical aftercare following surgery on the skin and subcutaneous tissue (principal); Z98.890 Other specified postprocedural states; Z51.81 Encounter for therapeutic drug level monitoring; F11.20 Opioid dependence, uncomplicated; G56.00 Carpal tunnel syndrome, unspecified upper limb; M47.27 Other spondylosis with radiculopathy, lumbosacral region; M62.838 Other muscle spasm | CPT/HCPCS: 99212 ==

== ENCOUNTER → 2022-03-07 08:01 | Outpatient (BNVA) | payer MEDICAID, SELFPAY | PROVIDERS: PCP Internal Medicine Geriatric Medicine; Visit Provider Nurse Practitioner Family | DX: Z51.81 Encounter for therapeutic drug level monitoring (principal); F11.20 Opioid dependence, uncomplicated; G56.00 Carpal tunnel syndrome, unspecified upper limb; M47.27 Other spondylosis with radiculopathy, lumbosacral region; M62.838 Other muscle spasm | CPT/HCPCS: 99212 ==

== ENCOUNTER 2022-03-08 10:45 | Day surgery (SDC) | payer MEDICAID, SELFPAY ==
[2022-03-08 11:31] VITALS: BP 128/69; PULSE 63; RESP 19; TEMP 36.4; O2SAT 96
[2022-03-08 11:41] VITALS: BMI 26.4
[2022-03-08 11:58] LABS: Glucose, Whole Blood 183 mg/dL (60-115)
--- NOTE | 2022-03-08 13:32 | MHC.SHP ---
Pre-Procedural Eval Section A Date of Service: 03/08/22 The patient is an INPATIENT: No Changes since office visit: No Cold of Flu in the past 2 weeks, No New Medical Problems, No Changes in Medication and No Patient answered all questions The History & Physical has been completed within 30 days and I have reviewed it.: Yes Section B Chief Complaint: Carpal tunnel syndrome, right upper limb Allergies: Allergies Allergy/AdvReac Type Severity Reaction Status Date / Time soy Allergy Severe diarrhea Verified 03/07/22 08:20 fentanyl AdvReac Mild Nausea and Verified 03/07/22 08:20 Vomiting Plan I have reviewed the history and physical and performed a pertinent physical examination on my patient. No changes have occurred unless specified.
--- NOTE | 2022-03-08 13:32 | W.PM.OPN ---
Operative Note Operative Note Date of Service: 03/08/22 Narrative: Preop diagnosis: 1. right Carpal tunnel syndrome Postop diagnosis: same Procedure: 1. right Carpal tunnel release Surgeon: Cayla Damon MD Anesthesia: local block using 1% lidocaine with epinephrine Findings: Thickened transverse carpal ligament. EBL: Less than 5 mL Specimens: None Complications: None Disposition: Brought to recovery room in stable condition Plan: Follow-up for 10-14 days for wound check and suture removal Indications: The patient is 46 years old, with right carpal tunnel syndrome that has been unresponsive to nonoperative management. The risks and benefits of operative treatment including but not limited to risk of damage to blood vessels, nerves, tendons, infection, persistent pain, persistent symptoms, or possible need for additional surgery were discussed with the patient and the patient wishes to proceed with surgery. Procedure: Once consent was obtained a local block was performed using a combination of 1% lidocaine with epinephrine. The patient was then brought back to the operating suite and placed on the operative table in supine position. A tourniquet was applied to the proximal aspect of the right upper extremity and the limb was prepped and draped in a standard surgical fashion. Once assured that we had a good block, a 1.5 cm longitudinal incision was made centered over the carpal tunnel. The incision was made through the skin to the subcutaneous tissues using a #15 blade. Dissection was made down to the level of the transverse carpal ligament with care being taken to protect the palmar cutaneous nerve. Once the transverse carpal ligament was clearly visualized, a longitudinal incision was made in the transverse carpal ligament 1st using a #15 blade, then using tenotomy scissors under direct visualization. Care was taken to look for and protect the motor branch of the median nerve when seen in this area. Once satisfied with our carpal tunnel release the wound was copiously irrigated with normal saline and hemostasis was obtained with a brief period of local pressure. The skin edges were reapproximated with some 5.0 nylon suture material and a sterile dressing was applied. The patient appears to have tolerated the procedure well and with no complications. All digits were well vascularized at the conclusion of the case.
[2022-03-08 14:01] VITALS: BP 115/70; PULSE 63; RESP 14; TEMP 36.5; O2SAT 97
== END 2022-03-08 14:05 | disposition home or self-care (01) ==
PROVIDERS: PCP Internal Medicine Geriatric Medicine; Visit Provider Orthopaedic Surgery
PROC: (CPT 64721; principal; 2022-03-08 12:10)
DX: G56.01 Carpal tunnel syndrome, right upper limb (principal); E11.9 Type 2 diabetes mellitus without complications; I10 Essential (primary) hypertension; J45.909 Unspecified asthma, uncomplicated; Z79.84 Long term (current) use of oral hypoglycemic drugs; E66.9 Obesity, unspecified; Z68.26 Body mass index [BMI] 26.0-26.9, adult; Z98.84 Bariatric surgery status; Z79.899 Other long term (current) drug therapy; Z88.8 Allergy status to other drugs, medicaments and biological substances; Z87.891 Personal history of nicotine dependence
CPT/HCPCS: 64721; 82947; J0171

== ENCOUNTER → 2022-04-04 08:01 | Outpatient (BNVA) | payer MEDICAID, SELFPAY | PROVIDERS: PCP Internal Medicine Geriatric Medicine; Visit Provider Nurse Practitioner Family | DX: M47.27 Other spondylosis with radiculopathy, lumbosacral region (principal); M62.838 Other muscle spasm; G56.00 Carpal tunnel syndrome, unspecified upper limb; Z79.891 Long term (current) use of opiate analgesic | CPT/HCPCS: 99212 ==

== ENCOUNTER → 2022-05-02 10:19 | Outpatient (BNVA) | payer MEDICAID, SELFPAY | PROVIDERS: PCP Internal Medicine Geriatric Medicine; Visit Provider Nurse Practitioner Family | DX: Z51.81 Encounter for therapeutic drug level monitoring (principal); F11.20 Opioid dependence, uncomplicated; M47.27 Other spondylosis with radiculopathy, lumbosacral region; M62.838 Other muscle spasm; G56.00 Carpal tunnel syndrome, unspecified upper limb | CPT/HCPCS: 99212 ==

== ENCOUNTER → 2022-05-30 12:53 | Outpatient (BNVA) | payer MEDICAID, SELFPAY | PROVIDERS: PCP Internal Medicine Geriatric Medicine; Visit Provider Nurse Practitioner Family | DX: Z51.81 Encounter for therapeutic drug level monitoring (principal); F11.20 Opioid dependence, uncomplicated | CPT/HCPCS: 99211 ==

== ENCOUNTER 2025-08-18 08:24 | Outpatient (REF) | payer OTHER, SELFPAY ==
--- NOTE | ~2025-08-18 | XR_ITS ---
EXAMINATION: XR LUMBOSACRAL SPINE CLINICAL INFORMATION: M54.50 - Low back pain, unspecified COMPARISON: July 21, 2020. TECHNIQUE: AP oblique and lateral views. Lateral views during flexion and extension position. FINDINGS: Multilevel endplate sclerosis marginal osteophyte formation and decreased intervertebral disc height throughout the axial skeleton pronounced at L2-3, L4-5 and L5-S1 levels. Grade 1 anterolisthesis at L5-S1 secondary to spondylolysis pars interarticulares without gross motion during flexion and or extension position. Levoconvex curvature of the lower lumbar spine. Degenerative changes in both coxofemoral joints not fully included in the [id number]. Vascular clips in the left upper quadrant abdomen. XR/XR lumbar spine 6V w bending IMPRESSION: Multilevel spondylosis pronounced at L2-3, L4-5 and L5-S1. Grade 1 anterolisthesis secondary to spondylolysis pars interarticularis at L5-S1 without gross instability.. Electronically signed by: Khoa Conrad MD 08/18/2025 10:45 AM [facility]
--- NOTE | ~2025-08-18 | XR_ITS ---
EXAMINATION: XR BILATERAL HIPS WITH AP PELVIS CLINICAL INFORMATION: M25.559 - Pain in unspecified hip COMPARISON: None available. TECHNIQUE: AP and frog-leg lateral views of each hip and an AP view of the pelvis. FINDINGS: Pelvis x-ray demonstrates symmetry of the SI joints with very minimal degenerative change. Left hip demonstrates severe narrowing in the superior lateral joint space with subchondral sclerosis and degenerative cystic change and large marginal osteophytes. There is mild flattening of the superior femoral head. Right hip demonstrates mild axial joint space narrowing with moderate-sized marginal osteophytes. XR/XR hip BI w PEL1V IMPRESSION: Severe osteoarthritis of the left hip. There is mild flattening of the superior left femoral head raising question of age-indeterminate subchondral insufficiency fracture. Mild degenerative change of the right hip. Electronically signed by: Brendon Cason MD 08/18/2025 10:43 AM [facility]
== END 2025-08-18 08:25 | disposition home or self-care (01) ==
LOC: HO.XRAY 08:24
PROVIDERS: Absent Provider Student in an Organized Health Care Education/Training Program; PCP Internal Medicine Geriatric Medicine; Visit Provider Student in an Organized Health Care Education/Training Program
DX: Z00.00 Encounter for general adult medical examination without abnormal findings (principal); M25.559 Pain in unspecified hip; M54.50 Low back pain, unspecified; E11.8 Type 2 diabetes mellitus with unspecified complications; G89.29 Other chronic pain; M54.41 Lumbago with sciatica, right side; M54.42 Lumbago with sciatica, left side; F41.8 Other specified anxiety disorders; I10 Essential (primary) hypertension; E78.5 Hyperlipidemia, unspecified; Z98.84 Bariatric surgery status
CPT/HCPCS: 36415; 72114; 73521; 80053; 80061; 82043; 82306; 82570; 83036; 84443; 85025; 86704; 86706; 86709; 86780; 86803; 87340; 87389; 96127; 99202; 99386

== ENCOUNTER 2025-08-18 08:24 | Outpatient (AMB) | payer OTHER, SELFPAY ==
--- NOTE | 2025-08-18 08:25 | MHC.PC.OV ---
Vital Signs 08/18/25 08:27 Height 5 ft 11 in Weight 192 lb BMI 26.8 BP 124/80 Blood Pressure Location Lt brachial Position Sitting Pulse 87 Pulse Source Pulse Oximeter Temp 97.8 F Temp Source Temporal Artery Scan Pulse Oximetry (%) 98 Oxygen Delivery Method Room Air Intake Visit Reasons: REHAB NURSE // Gastro Issues, Med review - see comments Sleeve Separator Required: No Accompanied by: Self / Same As Patient Allergies soy Allergy (Severe, Verified 08/18/25 08:26) diarrhea fentanyl Adverse Reaction (Mild, Verified 08/18/25 08:26) Nausea and Vomiting Medication List - Last Reconciled 08/18/25 by Salo Mcclain MD Brace,wrist As directed dextroamphetamine-amphetamine 20 mg ER (Adderall XR) 20 mg PO DAILY dextroamphetamine-amphetamine 30 mg ER (Adderall XR) 0 caps PO ibuprofen 600 mg PO Q6-8H PRN metformin 1,000 mg PO BID thiamine HCl (vitamin B1) 100 mg PO DAILY Tobacco use date assessed: 08/18/25 Dental Screening Dental Screen Date: 08/18/25 Did you have a dental visit in the last 12 months?: Yes Did you have a dental problem in the last 6 months where you did not have access to dental care?: No [facility] Medical History (Updated 08/18/25 @ 09:11 by Salo Mcclain MD) Annual physical exam Hyperlipidemia Depression with anxiety Hip pain Low back pain Palpitations Attention deficit disorder (ADD) COVID-19 vaccine series completed Asthma Steatosis, liver GERD (gastroesophageal reflux disease) Hypertension BMI 31.0-31.9,adult Obesity 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 Sister No problems noted. Son No problems noted. Daughter No problems noted. 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 1. Little interest or pleasure in doing things: not at all 2. Feeling down, depressed, or hopeless: nearly every day 3. Trouble falling or staying asleep, or sleeping too much: nearly every day 4. Feeling tired or having little energy: nearly every day 5. Poor appetite or overeating: nearly every day 6. Feeling bad about yourself - or that you are a failure or have let yourself or your family down: not at all 7. Trouble concentrating on things, such as reading the newspaper or watching television: not at all 8. Moving or speaking so slowly that other people could have noticed. Or the opposite - being so fidgety or restless that you have been moving around a lot more than usual: not at all 9. Thoughts that you would be better off or of hurting yourself in some way: not at all Total score: 12 Depression Screening Interpretation: Positive Depression Screening Done: Yes 33565 - PHQ-9 Billing: Yes Source: Developed by Drs. Arnav Chung, Юлия Mcleod, Terrell Asher and colleagues, with an educational seth from [employer]. Thrive Questionnaire Date Thrive assessed: 08/18/25 I am a: Patient Within the past 12 months, did the food you bought not last and you didn't have the money to get more?: Never true Within the past 12 months, did you worry whether your food would run out before you got money to buy more?: Never true Do you have trouble paying for medicines?: No Do you have trouble getting transportation to medical appointments?: No Do you have trouble paying your heating and electricity bill?: No Do you have trouble taking care of your child, family member or friend?: No Do you have trouble with day-to-day activities such as bathing, preparing meals, shopping, managing finances, etc.?: No Are you currently unemployed and looking for a job?: No Are you interested in more education?: No THRIVE Score: 0 AUDIT C Alcohol Use Questionnaire (AUDIT-C) 1. How often do you have a drink containing alcohol?: Never 3. How often do you have six or more drinks on one occasion?: Never Total Score: 0 LAURENCE-7 AMB Questionnaire LAURENCE-7 Date LAURENCE - 7 assessed: 08/18/25 Feeling nervous, anxious, or on edge: 3 = Nearly every day Not being able to stop or control worryin = Not at all Worrying too much about different things: 0 = Not at all Trouble relaxin = Not at all Being so restless that it is hard to sit still: 0 = Not at all Becoming easily annoyed or irritable: 0 = Not at all Feeling afraid as if something awful might happen: 0 = Not at all Total LAURENCE-7 score (0-4 normal; 5-9 mild; 10-14 moderate; 15-21 severe): 3 Source: Developed by Drs. Arnav Chung, Юлия Mcleod, Terrell Asher and colleagues, with an educational seth from [employer]. LAURENCE-7 Assessment Billing LUARENCE-7 Assessment Tool: LAURENCE-7 Assessment 44539 Physical exam (Primary Care) Vital Signs: Last Vital Signs Temp 97.8 F 08/18/25 08:27 Pulse 87 08/18/25 08:27 BP 124/80 08/18/25 08:27 Pulse Ox 98 08/18/25 08:27 Oxygen Delivery Method Room Air 08/18/25 08:27 BMI result Body Mass Index 26.8 Tobacco/Smoking Status: Tobacco use Status Tobacco use date assessed 08/18/25 08/18/25 08:35 Patient Tobacco Use Status Former Tobacco user 08/18/25 08:35 Tobacco use type Cigarette 08/18/25 08:35 e-Cigarette/Vaping Use Former Use 08/18/25 08:35 PHQ-9: PHQ-9 Score PHQ-9: Total score 12 08/18/25 08:47 Depression Screening Interpretation: Positive Thrive Assessment: Date of Thrive Assessment Date Thrive assessed 08/18/25 08/18/25 08:35 Coding Level of Care Code New Pt Level 4 (72013) New Pt Prev Care 40-64y(14907) Diagnoses Type 2 diabetes mellitus with unspecified complications E11.8 Chronic bilateral low back pain with sciatica, sciatica laterality unspecified G89.29; M54.41; M54.42 Chronicity: chronic Back pain laterality: bilateral Sciatica presence: with sciatica Sciatica laterality: sciatica laterality unspecified Depression with anxiety F41.8 Primary hypertension I10 Hypertension type: primary hypertension Hyperlipidemia, unspecified hyperlipidemia type E78.5 Hyperlipidemia type: unspecified S/P laparoscopic sleeve gastrectomy Z98.84 Annual physical exam Z00.00 Additional Codes LAURENCE-7 Assessment Billing - LAURENCE-7 Assessment Tool: LAURENCE-7 Assessment 82157 ([id number]) PHQ-9 - 99028 - PHQ-9 Billing: Yes ([id number]) Comment [id number] Assessment & Plan Assessment & Plan (1) Type 2 diabetes mellitus with unspecified complications: Comment: - The patient's diabetes is managed with Ozempic 2 mg, metformin 1000 mg twice daily, and Jardiance 25 mg daily. - A comprehensive blood panel will be drawn today to serve as a baseline and to obtain prior authorization for Ozempic. - The patient reports his dose of Ozempic is scheduled to be increased to 2.5 mg. Code(s): E11.8 - Type 2 diabetes mellitus with unspecified complications Category: Medical (2) Low back pain: Comment: - The patient reports significant pain limiting mobility, stating he needs a hip replacement and his lower back is caving in. - An MRI from 4 years ago showed stenosis. - Will order X-rays of the hip and spine today. - If the X-rays are concerning, a referral will be placed to orthopedics for the hip. - The patient is advised to try to obtain records of his most recent MRI from the past year, as a new MRI will be needed for a neurosurgery referral. - A referral will be placed for pain management, which may help expedite imaging. - Will prescribe gabapentin 300 mg three times daily for neuropathic pain. Code(s): M54.50 - Low back pain, unspecified Category: Medical Qualifiers: Chronicity: chronic Back pain laterality: bilateral Sciatica presence: with sciatica Sciatica laterality: sciatica laterality unspecified Qualified Code(s): G89.29 - Other chronic pain; M54.41 - Lumbago with sciatica, right side; M54.42 - Lumbago with sciatica, left side (3) Depression with anxiety: Comment: - The patient scores positive for depression and anxiety and reports feeling chronically down, fatigued, and lacking motivation. - He is in the process of re-establishing care with his psychiatrist and therapist after being incarcerated. - He will continue with that plan. - Comprehensive bloodwork ordered today will assess for other underlying causes of fatigue, such as thyroid issues or vitamin deficiencies. Code(s): F41.8 - Other specified anxiety disorders Category: Medical (4) Hypertension: Comment: - The patient is on amlodipine, lisinopril, Code(s): I10 - Essential (primary) hypertension Category: Medical Qualifiers: Hypertension type: primary hypertension Qualified Code(s): I10 - Essential (primary) hypertension (5) Hyperlipidemia: Comment: - The patient is on atorvastatin. - The lipids and other metabolic parameters will be checked with today's blood work. Code(s): E78.5 - Hyperlipidemia, unspecified Category: Medical Qualifiers: Hyperlipidemia type: unspecified Qualified Code(s): E78.5 - Hyperlipidemia, unspecified (6) S/P laparoscopic sleeve gastrectomy: Comment: - The patient reports chronic daily diarrhea and new-onset abdominal/pelvic pain with pressure since his surgery. - A referral will be placed to the bariatric surgeon, Dr. Chandler, for further evaluation of these symptoms. Code(s): Z98.84 - Bariatric surgery status Category: Surgical (7) Annual physical exam: Comment: - The patient is due for a screening colonoscopy based on his age. - An order for a colonoscopy will be placed. Code(s): Z00.00 - Encounter for general adult medical examination without abnormal findings Category: Medical Plan: Health Maintenance: - Will obtain baseline bloodwork including counts, electrolytes, sugars, cholesterol, thyroid, vitamin D, and screenings for hepatitis, HIV, and syphilis. - Ordered screening colonoscopy as patient is due based on age. - Ordered X-rays of the back and hip for evaluation of chronic pain. - Patient's history of tobacco, alcohol, and illicit drug use was reviewed; he reports prolonged abstinence from all. - Discussed need for specialist involvement to manage his complex health issues, including referrals for pain management and bariatric surgery follow-up. Patient was informed and verbally consented to the use of an ambient scribe for clinic note documentation during this visit. Plan I had a detailed discussion with the patient regarding his complex medical history and the need to re-establish care after a three-year period of incarceration. We reviewed his numerous chronic conditions, including type 2 diabetes, hypertension, chronic pain, and mental health issues. I explained that a comprehensive approach involving multiple specialists would be necessary. I outlined the plan to start with baseline diagnostics, including extensive blood work and X-rays of his hip and spine, which can be done today. I explained that obtaining his Ozempic prescription requires recent blood work for insurance approval. Regarding his back and hip pain, I was transparent that getting an MRI approved by insurance would be difficult and that neurosurgeons would not see him without new imaging; I advised him to try and obtain his most recent MRI records to facilitate this process. We discussed referrals to pain management, orthopedics (pending X-ray results), and his bariatric surgeon for his ongoing issues. I also ordered a screening colonoscopy, as he is due. I started him on gabapentin for his pain. We reactivated his patient portal access and scheduled a follow-up in two months to review all results and adjust the plan. I acknowledged that it will be a process to get all his health concerns addressed, and we will take it one step at a time. Orders: Orders Comprehensive Met. Panel Today Z00.00 - Encounter for general adult medical examination without abnormal findings Syphilis Screen Today Z00.00 - Encounter for general adult medical examination without abnormal findings XR hip BI w PEL1V Today M25.559 - Pain in unspecified hip XR lumbar spine 6V w bending Today M54.50 - Low back pain, unspecified Complete Blood Count Auto Diff Today Z00.00 - Encounter for general adult medical examination without abnormal findings Hemoglobin A1c Today Z00.00 - Encounter for general adult medical examination without abnormal findings Hepatitis A,B,C Profile Today Z00.00 - Encounter for general adult medical examination without abnormal findings HIV Ab/Ag Today Z00.00 - Encounter for general adult medical examination without abnormal findings Lipid Panel Today Z00.00 - Encounter for general adult medical examination without abnormal findings Microalbumin, Random (w Creat) Today Z00.00 - Encounter for general adult medical examination without abnormal findings TSH reflex Free T4 Today Z00.00 - Encounter for general adult medical examination without abnormal findings Vitamin D 25-OH Total Today Z00.00 - Encounter for general adult medical examination without abnormal findings Referrals Pain Management Referral M25.559 - Pain in unspecified hip, M54.50 - Low back pain, unspecified Bariatric Surgery Referral Z98.84 - Bariatric surgery status Open Access Screening Colonoscopy Referral Z12.11 - Encounter for screening for malignant neoplasm of colon Medications: New gabapentin 300 mg PO TID 90 caps 0RF amlodipine 10 mg PO DAILY atorvastatin (Lipitor) 40 mg PO BEDTIME empagliflozin (Jardiance) 25 mg PO DAILY lisinopril 40 mg PO DAILY mometasone administer 1 hour before bedtime 2 inhalations inhalation DAILY albuterol sulfate 90 mcg/actuation (Ventolin HFA) 2 puffs inhalation QID PRN aspirin 81 mg PO DAILY semaglutide (Ozempic) 2 mg subcut QWEEK Discontinued ibuprofen Discontinued Reason: Doctor's Order 600 mg PO Q6-8H PRN 10 tabs 0RF pain thiamine HCl (vitamin B1) Discontinued Reason: Doctor's Order 100 mg PO DAILY 30 tabs 1RF Patient Instructions: - Please go to the lab across the [place] today to have your blood drawn. This is necessary to get a baseline and to get your Ozempic medication approved by your insurance. - Please go for X-rays of your back and hip today. This is located across the street on the second floor. - We have started you on Gabapentin 300 mg capsules. Please take one capsule by mouth three times per day for your pain. - We are placing referrals for you to see a sign painter apprentice and your bariatric surgeon. You will also get an order for a colonoscopy. - Please try to contact the facility where you had an MRI of your back last year and ask them to send the records to our office. - Continue with your plan to see your psychiatrist and therapist for your mental health. - We have reset your access to the online patient portal. Please log in when you get home to set up your new username and password. This will allow you to see your test results and communicate with our office. - We have scheduled a follow-up appointment for you in two months to go over your results.
[2025-08-18 08:27] VITALS: BP 124/80; PULSE 87; TEMP 36.6; O2SAT 98; BMI 26.8
== END 2025-08-18 08:59 | disposition home or self-care (01) ==
LOC: HO.HMCHD 08:25
PROVIDERS: PCP Internal Medicine Geriatric Medicine; Visit Provider Student in an Organized Health Care Education/Training Program
DX: Z00.00 Encounter for general adult medical examination without abnormal findings (principal); E11.8 Type 2 diabetes mellitus with unspecified complications; G89.29 Other chronic pain; M54.41 Lumbago with sciatica, right side; M54.42 Lumbago with sciatica, left side; F41.8 Other specified anxiety disorders; I10 Essential (primary) hypertension; E78.5 Hyperlipidemia, unspecified; Z98.84 Bariatric surgery status

== ENCOUNTER 2025-08-18 09:01 | Outpatient (REF) | payer OTHER, SELFPAY ==
[2025-08-18 10:44] LABS: MANUAL DIFF FLAG NO
[2025-08-18 10:46] LABS: Hematocrit 43.1 % (42.0-52.0); Hemoglobin 14.3 g/dl (14.0-18.0); Imm Gran Abs Auto 0.01 X10*3/uL (0.00-0.03); Imm Gran Pct Auto 0.2 % (0.0-0.4); Lymphocytes Absolute Auto 1.3 X10*3/uL (1.2-4.9); Mean Corpuscular HGB Conc 33.2 g/dl (31.0-36.0); Mean Corpuscular Hemoglobin 29.5 pg (27.0-33.0); Mean Corpuscular Volume 88.9 fL (80.0-98.0); NRBC Abs Auto 0.000 X10*3/uL (0.0-0.012); NRBC Pct Auto 0.0 /100WBC (0.0-0.2); Platelet Count 309 X10*3/uL (160-400); Red Blood Count 4.85 X10*6/uL (4.60-5.80); White Blood Count 5.8 X10*3/uL (4.8-10.8)
[2025-08-18 11:12] LABS: Hemoglobin A1C 157.9612 umol/L
[2025-08-18 11:14] LABS: Alanine Aminotransferase 27 U/L (0-40); Albumin Level 5.0 g/dL (3.5-5.0); Alkaline Phosphatase 69 U/L (39-117); Anion Gap 12 (12-20); Aspartate Amino Transferase 22 U/L (5-37); Blood Urea Nitrogen 21 mg/dL (9-16); Calcium 9.8 mg/dL (8.4-10.2); Carbon Dioxide 26 mmol/L (22-29); Chloride 108 mmol/L (96-108); Cholesterol 108 mg/dL (<200); Estimated Glomerular Filt Rate > 60; HDL Cholesterol 41 mg/dL (>40); Potassium 4.6 mmol/L (3.3-5.1); Sodium 141 mmol/L (135-145); Total Protein 8.1 g/dL (6.5-8.0); Triglycerides 83 mg/dL (<150)
[2025-08-18 11:22] LABS: HBS Num1 0.28 mIU/mL (0-7.99); HBc Num1 0.11 S/CO (0.00-0.79); HBsAGNum1 0.35 S/CO (0.00-0.99); HIV Num 1 0.06 S/CO (0.00-0.99); Hepatitis A Antibody IgM 0.16 Index (0-0.79); Hepatitis B Surface Antigen Negative (Negative); ~HepC Num1 0.09 S/CO (0.00-0.79); ~Hepatitis A Antibody IgM Nonreactive (Nonreactive); ~Hepatitis B Surface Antibody NONREACTIVE (Nonreactive); ~Hepatitis C Antibody Nonreactive (Nonreactive)
[2025-08-18 11:23] LABS: Syphilis Screen Nonreactive (Nonreactive)
[2025-08-18 11:33] LABS: Microalbum/Creatinine Ratio Ur 6.1 ug/mg cr (<30)
== END 2025-08-18 09:02 | disposition home or self-care (01) ==
LOC: HO.10HDL 09:01
PROVIDERS: Visit Provider Student in an Organized Health Care Education/Training Program
DX: Z00.00 Encounter for general adult medical examination without abnormal findings (principal); Z11.4 Encounter for screening for human immunodeficiency virus [HIV]; Z11.59 Encounter for screening for other viral diseases; Z11.3 Encounter for screening for infections with a predominantly sexual mode of transmission
CPT/HCPCS: 36415; 80053; 80061; 82043; 82306; 82570; 83036; 84443; 85025; 86704; 86706; 86709; 86780; 86803; 87340; 87389

== ENCOUNTER → 2025-08-18 09:29 | Outpatient (BNV) | payer OTHER, SELFPAY | PROVIDERS: Absent Provider Student in an Organized Health Care Education/Training Program; PCP Internal Medicine Geriatric Medicine; Visit Provider Radiology Diagnostic Radiology | DX: M47.817 Spondylosis without myelopathy or radiculopathy, lumbosacral region (principal); M43.07 Spondylolysis, lumbosacral region; M16.0 Bilateral primary osteoarthritis of hip | CPT/HCPCS: 72114; 73521 ==